=== PATIENT | female | born 1940 | race Caucasian/White ===

== ENCOUNTER 2019-09-27 11:31 | Observation (INO) ==
[2019-09-27 12:36] LABS: iSTAT Creatinine 3.5 mg/dl (0.6-1.3); iSTAT Hemoglobin 9.9 g/dl (12.0-16.0); iSTAT Ionized Calcium 1.2 mmol/l (1.12-1.32); iSTAT Potassium 5.2 mmol/L (3.3-5.0)
[2019-09-27 12:45] LABS: Appearance Urine Clear (Clear); Bacteria Urine Automated Negative (Negative); Bilirubin Urine Negative (Negative); Blood Urine 3+ (Negative); Color Urine Yellow; Epithelial Cell Urine Auto 20-30 /lpf (0-5); Glucose Urine UA Negative (Negative); Ketones Urine Negative (Negative); Leukocyte Esterase Urine Negative (Negative); Nitrite Urine Negative (Negative); Protein Urine 4+ (Negative); RBC Urine Automated >30 /hpf (0-4); Specific Gravity Urine 1.013 (1.000-1.030); Urobilinogen Urine Negative (Negative)
--- NOTE | 2019-09-27 12:46 | Emergency Department Note ---
History of Present Illness General Chief complaint: Referred by Doctor Stated complaint: KIDNEY DISEASE, REF'D BY ADRIANNA Time Seen by Provider: 09/27/19 12:11 History of Present Illness Provider complaint: Referred by physician/altered mental status Maximum Pain Intensity: 0 79-year-old female with history of CKD as well as C differential per the son at bedside presents emergency department for admission as well as altered mental status. Patient's son states the patient just moved to [facility] from [place] last week. Since moving here from [place], the son reports that the patient has had a loss of appetite, fatigue, edema of the bilateral lower extremities shortness of breath, combative behavior, and altered mental status. He states he was trying to get the patient to see a metal sprayer in the area, Dr. Fuchs, who told the patient to come to the ER to get admitted. He states Dr. Fuchs is never seen the patient. He states the patient has no PCP or physician in the area. Home Medications Home Medications Medication Instructions Recorded Confirmed Type Benefiber Sugar Free (dextrin) See Rx Instructions .ROUTE .COMPLEX 09/27/19 09/27/19 History Bifidobacterium infantis [Align] 4 mg PO BID 09/27/19 09/27/19 History apixaban [Eliquis] 2.5 mg PO BID 09/27/19 09/27/19 History bumetanide 2 mg PO Q12 09/27/19 09/27/19 History bupropion HCl 150 mg PO DAILY 09/27/19 09/27/19 History calcium carbonate [Calcium Antacid] 200 mg PO .PRN PRN 09/27/19 09/27/19 History cholecalciferol (vitamin D3) 25 mcg PO DAILY 09/27/19 09/27/19 History colesevelam 1,250 mg PO BID 09/27/19 09/27/19 History hydrocortisone 1 applic TOPICAL HS 09/27/19 09/27/19 History iron,carbonyl-vitamin C [Vitron-C] 1 tab PO DAILY 09/27/19 09/27/19 History levothyroxine 125 mcg PO DAILY 09/27/19 09/27/19 History magnesium oxide 400 mg PO BID 09/27/19 09/27/19 History metoprolol tartrate 100 mg PO BID 09/27/19 09/27/19 History ondansetron 4 mg PO Q8H PRN 09/27/19 09/27/19 History potassium chloride 10 meq PO DAILY 09/27/19 09/27/19 History rivaroxaban [Xarelto] 15 mg PO HS 09/27/19 09/27/19 History vancomycin 250 mg PO DIRECTED 09/27/19 09/27/19 History Allergies Allergy/AdvReac Type Severity Reaction Status Date / Time No Known Allergies Allergy Unverified 09/27/19 12:23 Past Med/Surg History Medical History (Updated 09/27/19 @ 19:40 by Roberto Zuñiga) C. difficile colitis CKD (chronic kidney disease) No pertinent family history Social History Feels Safe at Home: Yes Smoking Status: Never smoker Review of Systems A total of 10 systems reviewed and were otherwise negative Physical Exam Vital Signs Vital Signs - 24 hr 09/27/19 11:40 09/27/19 12:55 09/27/19 12:58 Temperature 36.8 C Temperature Source Oral Pulse Rate 84 80 92 H Pulse Rate from SpO2 Sensor 78 89 Pulse Rhythm Respiratory Rate 20 20 24 Respiratory Effort / Characteristics Non-Labored Respiratory Depth Normal Blood Pressure 144/75 H 145/91 H Blood Pressure Mean 98 114 Pulse Oximetry 99 98 99 Oxygen Delivery Method Room Air Sepsis Recent Fever Within 48 Hours No Sepsis Action Taken by Nursing No Action Required 09/27/19 13:00 09/27/19 13:01 09/27/19 13:30 Temperature Temperature Source Pulse Rate 92 H 83 79 Pulse Rate from SpO2 Sensor 90 79 71 Pulse Rhythm Irregular Respiratory Rate 22 18 20 Respiratory Effort / Characteristics Respiratory Depth Blood Pressure 144/86 H 136/67 Blood Pressure Mean 89 92 Pulse Oximetry 94 97 97 Oxygen Delivery Method Room Air Sepsis Recent Fever Within 48 Hours Sepsis Action Taken by Nursing 09/27/19 13:31 09/27/19 14:00 09/27/19 14:01 Temperature Temperature Source Pulse Rate 81 82 89 Pulse Rate from SpO2 Sensor 83 81 83 Pulse Rhythm Respiratory Rate 20 18 19 Respiratory Effort / Characteristics Respiratory Depth Blood Pressure 142/80 H Blood Pressure Mean 110 Pulse Oximetry 98 98 99 Oxygen Delivery Method Sepsis Recent Fever Within 48 Hours Sepsis Action Taken by Nursing 09/27/19 14:30 09/27/19 15:00 09/27/19 15:01 Temperature Temperature Source Pulse Rate 89 78 76 Pulse Rate from SpO2 Sensor Pulse Rhythm Respiratory Rate 21 18 27 H Respiratory Effort / Characteristics Respiratory Depth Blood Pressure 153/57 H 135/99 Blood Pressure Mean 98 121 Pulse Oximetry Oxygen Delivery Method Sepsis Recent Fever Within 48 Hours Sepsis Action Taken by Nursing 09/27/19 15:30 09/27/19 15:31 09/27/19 16:00 Temperature Temperature Source Pulse Rate 80 91 H 82 Pulse Rate from SpO2 Sensor Pulse Rhythm Respiratory Rate 20 19 20 Respiratory Effort / Characteristics Respiratory Depth Blood Pressure 157/102 H 155/76 H Blood Pressure Mean 125 101 Pulse Oximetry Oxygen Delivery Method Sepsis Recent Fever Within 48 Hours Sepsis Action Taken by Nursing 09/27/19 16:01 09/27/19 16:30 09/27/19 16:31 Temperature Temperature Source Pulse Rate 87 83 95 H Pulse Rate from SpO2 Sensor Pulse Rhythm Respiratory Rate 20 20 20 Respiratory Effort / Characteristics Respiratory Depth Blood Pressure 136/94 Blood Pressure Mean 116 Pulse Oximetry Oxygen Delivery Method Sepsis Recent Fever Within 48 Hours Sepsis Action Taken by Nursing Physical Exam GENERAL: She is oriented to person, place, and time. She appears well-developed and well-nourished. She does not appear distressed. HENT: Exam performed. -Head: Normocephalic and atraumatic. -Right Ear: External ear normal. No mastoid tenderness. -Left Ear: External ear normal. No mastoid tenderness. -Mouth/Throat: The oropharynx is clear and moist. No trismus in the jaw. No dental abscesses or uvula swelling. No oropharyngeal exudate or tonsillar abscesses. EYES: Conjunctivae and EOM are normal. Pupils are equal, round, and reactive to light. Right eye exhibits no discharge. Left eye exhibits no discharge. No scleral icterus. NECK: Normal range of motion. Neck supple. No JVD present. No spinous process tenderness present. No carotid bruit present. No rigidity. No tracheal deviation and normal range of motion present. No Brudzinski's sign and no Kernig's sign noted. CV: Normal rate, irregular rhythm, normal heart sounds and intact distal pulses. There is 4+ pitting edema of the bilateral lower extremities. Palpable radial pulses bue. PULM/CHEST: Effort normal and breath sounds normal. No respiratory distress. No stridor. She has no wheezes. She has no rales. -Chest Wall: She exhibits no tenderness. ABD: The abdomen is soft. Bowel sounds are normal. She has no distension. No mass is present. There is no tenderness. There is no rebound, no guarding, no Guerra's sign and no tenderness at McBurney's point. Rovsig negative MUSC/SKEL: Normal range of motion. There is 4+ pitting edema of the bilateral lower extremities. LYMPH: No cervical adenopathy. NEURO: She is alert and oriented to person, place, and time. She has normal strength. No cranial nerve deficit or sensory deficit. Coordination and gait normal. GCS eye subscore is 4. GCS verbal subscore is 5. GCS motor subscore is 6. Cerebellar tests wnl. SKIN: Skin is warm and dry. She is not diaphoretic. PSYCH: She has a normal mood and affect. Behavior is normal. Judgment and thought content normal. Course Course 1245: The patient was evaluated in room B5. A complete history and physical exam was performed. Cardiac monitoring: An order was placed for continuous cardiac monitoring. The monitor shows a rate of 80 with atrial fibrillation rhythm 1515: Vital signs stable. Creatinine at 3.47. Son at bedside states this is baseline for the patient. Chest x-ray shows cardiomegaly. Bedside ultrasound showed scant pericardial effusion but absolutely no evidence of pericardial tamponade. BNP elevated at 19,218. Up from yesterday of 18,080. [facility] is [facility] the patient be admitted to. Dr. Mcconnell accepted the admission Administered Medications Sodium Chloride (Nss) 500 mls @ 125 mls/hr IV .Q4H [facility] Stop: 10/27/19 12:14 Last Admin: 09/27/19 14:21 Dose: 125 mls/hr Documented by: [id number] Discontinued Medications Al Hydrox/Mg Hydrox/Simethicone () 1 dose PO ONE ONE Stop: 09/27/19 14:03 Last Admin: 09/27/19 14:21 Dose: 1 dose Documented by: [id number] Medical Decision Making Laboratory Data Result diagrams: 09/27/19 12:15 09/27/19 12:15 Lab Results 09/27/19 09/27/19 09/27/19 Range/Units 12:10 12:15 12:15 WBC 7.78 (4.8-10.8) K/uL RBC 3.47 L (4.2-5.4) M/uL Hgb 9.7 L (12.0-16.0) g/dL POC Hgb (12.0-16.0) g/dl Hct 29.2 L (37-47) % POC Hct (37-47) % MCV 84.1 (80-100) fL MCH 28.0 (25-34) pg MCHC 33.2 (32-36) g/dL RDW Std Deviation 43.3 (36.4-46.3) fL RDW Coeff of Rodriguez 14.2 (11.5-14.5) % Plt Count 471 H (130-400) K/uL MPV 8.5 (7.4-10.4) fL Immature Gran % (Auto) 0.3 % Neut % (Auto) 68.1 % Lymph % (Auto) 18.5 % [place] % (Auto) 11.1 % Eos % (Auto) 1.7 % Baso % (Auto) 0.3 % Neut # (Auto) 5.31 (1.4-6.5) K/uL Lymph # (Auto) 1.44 (1.2-3.4) K/uL [place] # (Auto) 0.86 H (0.11-0.59) K/uL Eos # (Auto) 0.13 (0-0.5) K/uL Baso # (Auto) 0.02 (0-0.2) K/uL Immature Gran # (Auto) 0.02 (0.00-0.02) K/uL PT (9.0-12.0) Seconds INR (0.9-1.1) APTT (21.0-31.0) Seconds PTT Ratio POC Sodium (135-144) mmol/L Sodium 131 L (136-145) mmol/L POC Potassium (3.3-5.0) mmol/L Potassium 5.1 (3.5-5.1) mmol/L POC Chloride (101-112) mmol/L Chloride 95 L (98-107) mmol/L Carbon Dioxide 32 (21-32) mmol/L POC Total CO2 (24-31) mmol/L Anion Gap 4.0 (3-11) POC Anion Gap (16-25) mmol/L POC BUN (7-18) mg/dl BUN 37 H (7-18) mg/dl Creatinine 3.47 H (0.6-1.2) mg/dl POC Creatinine (0.6-1.3) mg/dl Est Cr Clr Drug Dosing Not Reportable Est GFR ( Amer) 13.6 Est GFR (Non-Af Amer) 11.7 BUN/Creatinine Ratio 10.7 (10-20) Glucose 95 (70-99) mg/dl POC Glucose (70-99) mg/dl POC Glucose (other) (70-99) mg/dl Calcium 9.3 (8.5-10.1) mg/dl POC Ioniz Calcium Valeria (1.12-1.32) mmol/l Magnesium (1.8-2.4) mg/dl Total Bilirubin (0.2-1) mg/dl Direct Bilirubin (0-0.2) mg/dl AST (15-37) U/L ALT (12-78) U/L Alkaline Phosphatase (45-117) U/L Troponin I (0-0.045) ng/ml NT-Pro-B Natriuret Pep (0-1800) pg/ml Total Protein (6.4-8.2) gm/dl Albumin (3.4-5.0) gm/dl Lipase (73-393) U/L Urine Color Yellow Urine Appearance Clear (Clear) Urine pH 7.0 (4.5-7.5) Ur Specific [place] 1.013 (1.000-1.030) Urine Protein 4+ H (Negative) Urine Glucose (UA) Negative (Negative) Urine Ketones Negative (Negative) Urine Blood 3+ H (Negative) Urine Nitrite Negative (Negative) Urine Bilirubin Negative (Negative) Urine Urobilinogen Negative (Negative) Ur Leukocyte Esterase Negative (Negative) Urine WBC (Auto) 5-10 H (0-5) /hpf Urine RBC (Auto) >30 H (0-4) /hpf U Hyaline Cast (Auto) 1-5 (0-5) /lpf U Epithel Cells (Auto) 20-30 H (0-5) /lpf Urine Bacteria (Auto) Negative (Negative) 09/27/19 09/27/19 09/27/19 Range/Units 12:15 12:23 12:42 WBC (4.8-10.8) K/uL RBC (4.2-5.4) M/uL Hgb (12.0-16.0) g/dL POC Hgb 9.9 L (12.0-16.0) g/dl Hct (37-47) % POC Hct 29 L (37-47) % MCV (80-100) fL MCH (25-34) pg MCHC (32-36) g/dL RDW Std Deviation (36.4-46.3) fL RDW Coeff of Rodriguez (11.5-14.5) % Plt Count (130-400) K/uL MPV (7.4-10.4) fL Immature Gran % (Auto) % Neut % (Auto) % Lymph % (Auto) % [place] % (Auto) % Eos % (Auto) % Baso % (Auto) % Neut # (Auto) (1.4-6.5) K/uL Lymph # (Auto) (1.2-3.4) K/uL [place] # (Auto) (0.11-0.59) K/uL Eos # (Auto) (0-0.5) K/uL Baso # (Auto) (0-0.2) K/uL Immature Gran # (Auto) (0.00-0.02) K/uL PT 17.5 H (9.0-12.0) Seconds INR 1.7 H (0.9-1.1) APTT 36.2 H (21.0-31.0) Seconds PTT Ratio 1.3 POC Sodium 129 L (135-144) mmol/L Sodium (136-145) mmol/L POC Potassium 5.2 H (3.3-5.0) mmol/L Potassium (3.5-5.1) mmol/L POC Chloride 93 L (101-112) mmol/L Chloride (98-107) mmol/L Carbon Dioxide (21-32) mmol/L POC Total CO2 31 (24-31) mmol/L Anion Gap (3-11) POC Anion Gap 12.0 L (16-25) mmol/L POC BUN 32 H (7-18) mg/dl BUN (7-18) mg/dl Creatinine (0.6-1.2) mg/dl POC Creatinine 3.5 H (0.6-1.3) mg/dl Est Cr Clr Drug Dosing Est GFR ( Amer) Est GFR (Non-Af Amer) BUN/Creatinine Ratio (10-20) Glucose (70-99) mg/dl POC Glucose (70-99) mg/dl POC Glucose (other) 97 (70-99) mg/dl Calcium (8.5-10.1) mg/dl POC Ioniz Calcium Valeria 1.20 (1.12-1.32) mmol/l Magnesium 2.4 (1.8-2.4) mg/dl Total Bilirubin 0.3 (0.2-1) mg/dl Direct Bilirubin < 0.1 (0-0.2) mg/dl AST 23 (15-37) U/L ALT 17 (12-78) U/L Alkaline Phosphatase 137 H (45-117) U/L Troponin I 0.036 (0-0.045) ng/ml NT-Pro-B Natriuret Pep 51946 H (0-1800) pg/ml Total Protein 6.8 D (6.4-8.2) gm/dl Albumin 1.8 L (3.4-5.0) gm/dl Lipase 155 (73-393) U/L Urine Color Urine Appearance (Clear) Urine pH (4.5-7.5) Ur Specific [place] (1.000-1.030) Urine Protein (Negative) Urine Glucose (UA) (Negative) Urine Ketones (Negative) Urine Blood (Negative) Urine Nitrite (Negative) Urine Bilirubin (Negative) Urine Urobilinogen (Negative) Ur Leukocyte Esterase (Negative) Urine WBC (Auto) (0-5) /hpf Urine RBC (Auto) (0-4) /hpf U Hyaline Cast (Auto) (0-5) /lpf U Epithel Cells (Auto) (0-5) /lpf Urine Bacteria (Auto) (Negative) 09/27/19 Range/Units 12:57 WBC (4.8-10.8) K/uL RBC (4.2-5.4) M/uL Hgb (12.0-16.0) g/dL POC Hgb (12.0-16.0) g/dl Hct (37-47) % POC Hct (37-47) % MCV (80-100) fL MCH (25-34) pg MCHC (32-36) g/dL RDW Std Deviation (36.4-46.3) fL RDW Coeff of Rodriguez (11.5-14.5) % Plt Count (130-400) K/uL MPV (7.4-10.4) fL Immature Gran % (Auto) % Neut % (Auto) % Lymph % (Auto) % [place] % (Auto) % Eos % (Auto) % Baso % (Auto) % Neut # (Auto) (1.4-6.5) K/uL Lymph # (Auto) (1.2-3.4) K/uL [place] # (Auto) (0.11-0.59) K/uL Eos # (Auto) (0-0.5) K/uL Baso # (Auto) (0-0.2) K/uL Immature Gran # (Auto) (0.00-0.02) K/uL PT (9.0-12.0) Seconds INR (0.9-1.1) APTT (21.0-31.0) Seconds PTT Ratio POC Sodium (135-144) mmol/L Sodium (136-145) mmol/L POC Potassium (3.3-5.0) mmol/L Potassium (3.5-5.1) mmol/L POC Chloride (101-112) mmol/L Chloride (98-107) mmol/L Carbon Dioxide (21-32) mmol/L POC Total CO2 (24-31) mmol/L Anion Gap (3-11) POC Anion Gap (16-25) mmol/L POC BUN (7-18) mg/dl BUN (7-18) mg/dl Creatinine (0.6-1.2) mg/dl POC Creatinine (0.6-1.3) mg/dl Est Cr Clr Drug Dosing Est GFR ( Amer) Est GFR (Non-Af Amer) BUN/Creatinine Ratio (10-20) Glucose (70-99) mg/dl POC Glucose 101 H (70-99) mg/dl POC Glucose (other) (70-99) mg/dl Calcium (8.5-10.1) mg/dl POC Ioniz Calcium Valeria (1.12-1.32) mmol/l Magnesium (1.8-2.4) mg/dl Total Bilirubin (0.2-1) mg/dl Direct Bilirubin (0-0.2) mg/dl AST (15-37) U/L ALT (12-78) U/L Alkaline Phosphatase (45-117) U/L Troponin I (0-0.045) ng/ml NT-Pro-B Natriuret Pep (0-1800) pg/ml Total Protein (6.4-8.2) gm/dl Albumin (3.4-5.0) gm/dl Lipase (73-393) U/L Urine Color Urine Appearance (Clear) Urine pH (4.5-7.5) Ur Specific [place] (1.000-1.030) Urine Protein (Negative) Urine Glucose (UA) (Negative) Urine Ketones (Negative) Urine Blood (Negative) Urine Nitrite (Negative) Urine Bilirubin (Negative) Urine Urobilinogen (Negative) Ur Leukocyte Esterase (Negative) Urine WBC (Auto) (0-5) /hpf Urine RBC (Auto) (0-4) /hpf U Hyaline Cast (Auto) (0-5) /lpf U Epithel Cells (Auto) (0-5) /lpf Urine Bacteria (Auto) (Negative) Imaging Data Radiologist's Impression: XR chest 1V portable CLINICAL HISTORY: Acute change in mental status COMPARISON STUDY: No previous studies for comparison. FINDINGS: The heart is enlarged. There is a large retrocardiac opacity consistent with a hiatal hernia. Mild pulmonary venous hypertension is suspected. There is no lobar consolidation. There are advanced arthritic changes within each shoulder. There are no significant pleural effusions[ IMPRESSION: 1. Cardiomegaly and suspected mild pulmonary venous hypertension 2. Large hiatal hernia 2. No evidence of focal pulmonary consolidation ACT 112: Negative or not required by law. Electronically signed by: Orville Suarez M.D. 09/27/2019 12:54 PM Dictated: 09/27/19 1253 Transcribed: 09/27/[address] head/brain wo con CT DOSE: 638.56 mGycm HISTORY: Mental status change ams TECHNIQUE: Multiaxial CT images of the head were performed without the use of intravenous contrast. A dose lowering technique was utilized adhering to the principles of ALARA. Comparison: None. Findings: The paranasal sinuses and mastoid air cells are clear. The calvarium and skull base are intact. The ventricles and sulci are within normal limits. There is no mass, hematoma, midline shift, or acute infarct. Impression: No acute intracranial abnormality. ACT 112: Negative or not required by law. The above report was generated using voice recognition software. It may contain grammatical, syntax or spelling errors. Electronically signed by: Davi Patterson M.D. 09/27/2019 1:54 PM Dictated: 09/27/19 1348 Transcribed: 09/27/[address] WITHOUT CONTRAST CT DOSE: 819.35 mGycm HISTORY: Acute generalized abdominal pain with altered mental status ams abd pain TECHNIQUE: Multiaxial CT images of the abdomen and pelvis were performed without contrast. A dose lowering technique was utilized adhering to the principles of ALARA. COMPARISON STUDY: Chest radiograph of same day FINDINGS: Mild subsegmental bibasilar atelectasis. No pneumatosis or pneumoperitoneum. Moderate cardiomegaly. Spleen, and pancreas are unremarkable. Thickening of the adrenal glands suggests adrenal hyperplasia. Cholecystectomy. There is mild marginal nodularity of the liver suggests a mild cirrhotic liver disease without site is. No hepatic mass lesion or biliary ductal dilation. Liver is mildly enlarged. There are a few hypodensities of the left kidney suggestive of probable cysts measuring up to 2.0 cm. 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 No hydronephrosis. Pelvic structures are partially obscured secondary to streak artifact from bilateral hip total joint arthroplasties. Visualized urinary bladder is unremarkable. Indeterminate 2.5 x 1.9 cm cystic structure of the left adnexal/left iliac distribution. The uterus may be surgically absent. Extensive calcified plaque of the abdominal aorta without aneurysm. No adenopathy. Large hiatal hernia with majority of the stomach present within the thoracic cavity, partially imaged. Equivocal gastric wall thickening. No bowel obstruction or bowel wall thickening. Extensive colonic diverticulosis. No CT evidence of acute diverticulitis. Moderate fecal retention. There are a few right hemicolon scattered air-fluid levels. Noninflamed appendix. Tiny fat filled periumbilical hernia. Mild generalized body wall edema. Lumbar levoscoliosis. Demineralized appearance of the bones. Degenerative changes of the spine and pelvis. IMPRESSION: 1. Large hiatal hernia with the majority of the stomach present within the thoracic cavity, partially imaged. 2. No bowel obstruction or bowel wall thickening. 3. Extensive colonic diverticulosis without acute diverticulitis. 4. Findings suggestive of cirrhotic liver disease. No ascites. 5. Additional findings as above. Lumbar levoscoliosis. ACT 112: Negative or not required by law. The above report was generated using voice recognition software. It may contain grammatical, syntax or spelling errors. Electronically signed by: Eliezer Azveedo M.D. 09/27/2019 1:54 PM Dictated: 09/27/19 1347 Transcribed: 09/27/19 1347 ECG Data Indication: + altered mental status and + weakness Rate (beats per minute): 74 Rhythm: + atrial fibrillation ECG Intervals/blocks: + Normal QRS and + Normal QT-c ECG ST segments: + Normal ST segments [facility] Narrative 1245: The patient was evaluated in room B5. A complete history and physical exam was performed. Cardiac monitoring: An order was placed for continuous cardiac monitoring. The monitor shows a rate of 80 with atrial fibrillation rhythm 1515: Vital signs stable. Creatinine at 3.47. Son at bedside states this is baseline for the patient. Chest x-ray shows cardiomegaly. Bedside ultrasound showed scant pericardial effusion but absolutely no evidence of pericardial tamponade. BNP elevated at 19,218. Up from yesterday of 18,080. [facility] family is requesting the patient be admitted to. Dr. Mcconnell accepted the admission Impression & Plan Acute exacerbation of CHF (congestive heart failure) Discharge Plan Visit Data *Final* Discharge Date/Time: 09/27/19 17:55 Chief Complaint: Referred by Doctor Stated Complaint: KIDNEY DISEASE, REF'D BY ADRIANNA ED Provider: Roberto Zuñiga Discharge Problem: Acute exacerbation of CHF (congestive heart failure) Patient Disposition: Admitted As Inpatient Discharge Instructions Interventions: ED Discharge Assessment Last Done: 09/27/19 17:55 Discharge Problem: Acute exacerbation of CHF (congestive heart failure) Qualifiers: Heart failure type: unspecified Qualified Code(s): I50.9 - Heart failure, unspecified
[2019-09-27 12:52] LABS: Basophils # (auto) 0.02 K/uL (0-0.2); Basophils % (auto) 0.3 %; Eosinophils # (auto) 0.13 K/uL (0-0.5); Eosinophils % (auto) 1.7 %; Hematocrit (blood only) 29.2 % (37-47); Hemoglobin 9.7 g/dL (12.0-16.0); Immature Granulocytes # (auto) 0.02 K/uL (0.00-0.02); Immature Granulocytes % (auto) 0.3 %; Lymphocytes # (auto) 1.44 K/uL (1.2-3.4); Lymphocytes % (auto) 18.5 %; Mean Corpuscular Hgb Conc 33.2 g/dL (32-36); Mean Corpuscular Volume 84.1 fL (80-100); Mean Platelet Volume 8.5 fL (7.4-10.4); Monocytes # (auto) 0.86 K/uL (0.11-0.59); Monocytes % (auto) 11.1 %; Neutrophils # (auto) 5.31 K/uL (1.4-6.5); Neutrophils % (auto) 68.1 %; Platelet Count 471 K/uL (130-400); RDW Coefficient of Variation 14.2 % (11.5-14.5); RDW Standard Deviation 43.3 fL (36.4-46.3); Red Blood Count 3.47 M/uL (4.2-5.4); White Blood Count 7.78 K/uL (4.8-10.8)
--- NOTE | 2019-09-27 12:55 | XRay Report ---
XR chest 1V portable CLINICAL HISTORY: Acute change in mental status COMPARISON STUDY: No previous studies for comparison. FINDINGS: The heart is enlarged. There is a large retrocardiac opacity consistent with a hiatal herni a. Mild pulmonary venous hypertension is suspected. There is no lobar consolidation. There are advanc ed arthritic changes within each shoulder. There are no significant pleural effusions[ IMPRESSION: 1. Cardiomegaly and suspected mild pulmonary venous hypertension 2. Large hiatal hernia 2. No evidence of focal pulmonary consolidation ACT 112: Negative or not required by law. Electronically signed by: Orville Suarez M.D. 09/27/2019 12:54 PM
[2019-09-27 13:12] LABS: BUN Creatinine Ratio 10.7 (10-20); Blood Urea Nitrogen 37 mg/dl (7-18); Calcium 9.3 mg/dl (8.5-10.1); Carbon Dioxide 32 mmol/L (21-32); Chloride 95 mmol/L (98-107); Est GFR (African American) 13.6; Est GFR (Non-African American) 11.7; Glucose 95 mg/dl (70-99); Potassium 5.1 mmol/L (3.5-5.1); Sodium 131 mmol/L (136-145)
--- NOTE | 2019-09-27 13:55 | CT Scan Report ---
ABDOMEN AND PELVIS CT WITHOUT CONTRAST CT DOSE: 819.35 mGycm HISTORY: Acute generalized abdominal pain with altered mental status ams abd pain TECHNIQUE: Multiaxial CT images of the abdomen and pelvis were performed without contrast. A dose lo wering technique was utilized adhering to the principles of ALARA. COMPARISON STUDY: Chest radiograph of same day FINDINGS: Mild subsegmental bibasilar atelectasis. No pneumatosis or pneumoperitoneum. Moderate cardiomegaly. S pleen, and pancreas are unremarkable. Thickening of the adrenal glands suggests adrenal hyperplasia. Cholecystectomy. There is mild marginal nodularity of the liver suggests a mild cirrhotic liver disea se without site is. No hepatic mass lesion or biliary ductal dilation. Liver is mildly enlarged. There are a few hypodensities of the left kidney suggestive of probable cysts measuring up to 2.0 cm. 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 No hydronephrosis. Pelvic structures a re partially obscured secondary to streak artifact from bilateral hip total joint arthroplasties. Vis ualized urinary bladder is unremarkable. Indeterminate 2.5 x 1.9 cm cystic structure of the left adne xal/left iliac distribution. The uterus may be surgically absent. Extensive calcified plaque of the a bdominal aorta without aneurysm. No adenopathy. Large hiatal hernia with majority of the stomach present within the thoracic cavity, partially imaged . Equivocal gastric wall thickening. No bowel obstruction or bowel wall thickening. Extensive colonic diverticulosis. No CT evidence of acute diverticulitis. Moderate fecal retention. There are a few ri ght hemicolon scattered air-fluid levels. Noninflamed appendix. Tiny fat filled periumbilical hernia. Mild generalized body wall edema. Lumbar levoscoliosis. Demineralized appearance of the bones. Degen erative changes of the spine and pelvis. IMPRESSION: 1. Large hiatal hernia with the majority of the stomach present within the thoracic cavity, partially imaged. 2. No bowel obstruction or bowel wall thickening. 3. Extensive colonic diverticulosis without acute diverticulitis. 4. Findings suggestive of cirrhotic liver disease. No ascites. 5. Additional findings as above. Lumbar levoscoliosis. ACT 112: Negative or not required by law. The above report was generated using voice recognition software. It may contain grammatical, syntax o r spelling errors. Electronically signed by: Eliezer Azevedo M.D. 09/27/2019 1:54 PM
--- NOTE | 2019-09-27 13:55 | CT Scan Report ---
CT head/brain wo con CT DOSE: 638.56 mGycm HISTORY: Mental status change ams TECHNIQUE: Multiaxial CT images of the head were performed without the use of intravenous contrast. A dose lowering technique was utilized adhering to the principles of ALARA. Comparison: None. Findings: The paranasal sinuses and mastoid air cells are clear. The calvarium and skull base are int act. The ventricles and sulci are within normal limits. There is no mass, hematoma, midline shift, or acute infarct. Impression: No acute intracranial abnormality. ACT 112: Negative or not required by law. The above report was generated using voice recognition software. It may contain grammatical, syntax or spelling errors. Electronically signed by: Davi Patterson M.D. 09/27/2019 1:54 PM
[2019-09-27] MEDS ORDERED: GI COCKTAIL ED USE PO ONE (14:02)
[2019-09-27] MEDS: SODIUM CHLORIDE 0.9% 500 ML IV SCH ×2 (14:21→20:45)
[2019-09-27 14:38] LABS: INR 1.7 (0.9-1.1); Partial Thromboplastin Ratio 1.3; Partial Thromboplastin Time 36.2 Seconds (21.0-31.0); Prothrombin Time 17.5 Seconds (9.0-12.0)
[2019-09-27 15:30] LABS: Alanine Aminotransferase 17 U/L (12-78); Albumin Level 1.8 gm/dl (3.4-5.0); Alkaline Phosphatase 137 U/L (45-117); Aspartate Aminotransferase 23 U/L (15-37); Bilirubin Direct < 0.1 mg/dl (0-0.2); Bilirubin,Total 0.3 mg/dl (0.2-1); Lipase 155 U/L (73-393); Magnesium 2.4 mg/dl (1.8-2.4); NT Pro B Type Natriuretic Pept 19218 pg/ml (0-1800); Total Protein 6.8 gm/dl (6.4-8.2); Troponin I 0.036 ng/ml (0-0.045)
--- NOTE | 2019-09-27 16:26 | History & Physical Report ---
Date of Service September 27, 2019 Assessment & Plan (1) Acute kidney injury: Serum creatinine 3.47 compared to 1.18 on 01/16/19. UA shows 4+ protein. No hydronephrosis on CT. Hold bumetanide. Check SPEP, UPEP. Consult Nephrology. (2) Chronic diastolic heart failure: History of chronic left ventricular diastolic heart failure. No overt CHF radiographically. Hold bumetanide due to worsening renal function. (3) Atrial fibrillation: Rate controlled on metoprolol. Continue anticoagulation with apixaban. (4) Hypertension: Continue metoprolol. Follow and titrate Rx. (5) Cerebrovascular disease: S/P ischemic stroke, apparently cardioembolic due to AF. Minimal residual deficit. Continue apixaban. 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 Currently on vancomycin taper, but still having frequent loose stools. Consult GI. (7) Cirrhosis of liver: Mild cirrhosis of liver noted on CT. No apparent prior history. Current weight 74 kg, but pt reports 34 kg weight loss after her . May have CAM. Consult GI. (8) Hypothyroidism: TSH = 4.690. Continue levothyroxine. (9) Anemia: Hgb 9.7. 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 Check Fe studies, B12, folate, SPEP, UPEP. Further management per Nephrology. (10) Adnexal mass: Incidental finding on CT: "Indeterminate 2.5 x 1.9 cm cystic structure of the left adnexal/left iliac distribution." Check old records. Follow as clinically indicated. (11) Frequent falls: Pt reports frequent falls, last episode about 1 month ago. 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 Also s/p stroke with minimal residual right-sided weakness. PT / OT evals. (12) DVT prophylaxis: Continue apixaban. Ambulate. (13) Do not resuscitate status: Per discussion with patient and her son. (14) Discharge planning issues: Anticipated return to [facility]. Nephrology follow-up with Dr. Zimmerman. History of Present Illness Chief Complaint: abnormal labs, fluid retention, diarrhea Primary Care Provider: [facility] 79 YO female, just moved from [place], [place] to [facility] in [place] last week. Family lives in town. History of diastolic CHF, AF, mitral regurgitation, cerebrovascular disease, CKD, recurrent C diff, and other problems as noted. She is in the process of establishing with Dr. Zimmerman for management of her renal disease. Noted to have rising creatinine on labs drawn yesterday (BUN 37, creatinine 3.57). Serum creatinine was 1.18 on 01/16/19. Referred to hospital for further evaluation and management. Per history obtained from patient and son, sounds like she has had significant proteinuria. Urine output good with bumetanide. Has chronic / worsening dependent edema. No dysuria or gross hematuria. Also having problems with recurrent C difficile; has had 3 episodes. Started on vancomycin taper about 1 week ago, but having persistent diarrhea. No fever, abdominal pain, hematochezia. Allergies Allergy/AdvReac Type Severity Reaction Status Date / Time No Known Allergies Allergy Unverified 09/27/19 12:23 Home Medications Home Medications Medication Instructions Recorded Confirmed Type Benefiber Sugar Free (dextrin) See Rx Instructions .ROUTE .COMPLEX 09/27/19 09/27/19 History Bifidobacterium infantis [Align] 4 mg PO BID 09/27/19 09/27/19 History apixaban [Eliquis] 2.5 mg PO BID 09/27/19 09/27/19 History bumetanide 2 mg PO Q12 09/27/19 09/27/19 History bupropion HCl 150 mg PO DAILY 09/27/19 09/27/19 History calcium carbonate [Calcium Antacid] 200 mg PO .PRN PRN 09/27/19 09/27/19 History cholecalciferol (vitamin D3) 25 mcg PO DAILY 09/27/19 09/27/19 History colesevelam 1,250 mg PO BID 09/27/19 09/27/19 History hydrocortisone 1 applic TOPICAL HS 09/27/19 09/27/19 History iron,carbonyl-vitamin C [Vitron-C] 1 tab PO DAILY 09/27/19 09/27/19 History levothyroxine 125 mcg PO DAILY 09/27/19 09/27/19 History magnesium oxide 400 mg PO BID 09/27/19 09/27/19 History metoprolol tartrate 100 mg PO BID 09/27/19 09/27/19 History ondansetron 4 mg PO Q8H PRN 09/27/19 09/27/19 History potassium chloride 10 meq PO DAILY 09/27/19 09/27/19 History vancomycin 250 mg PO DIRECTED 09/27/19 09/27/19 History Past Med/Surg History Medical History (Updated 09/27/19 @ 23:58 by Josr Mcconnell MD) Acoustic neuroma s/p gamma knife Adnexal mass Anemia Atrial fibrillation C. difficile colitis Cerebrovascular disease Chronic diastolic heart failure Cirrhosis of liver CKD (chronic kidney disease) Diverticulosis Frequent falls Hiatal hernia History of Helicobacter pylori infection Hypertension Hypothyroidism Mitral regurgitation Thyroid adenoma Surgical History (Updated 09/27/19 @ 23:32 by Josr Mcconnell MD) Status post cholecystectomy Status post hernia repair Status post hysterectomy Status post left hip replacement Status post total hip replacement, right Status post total knee replacement, left Status post total knee replacement, right Family History (Updated 09/27/19 @ 23:34 by Josr Mcconnell MD) Mother Heart disease Hypertension Stroke Father Pneumoconiosis Social History Preferred Language: German Communication Ability: Effective Head Of Biology Required: No Beliefs That Will Affect Care: None Current Living Situation: Personal Care Facility Current Living Situation Comment: [facility] Feels Safe at Home: Yes Smoking Status: Never smoker Hx Alcohol Use: No Hx Substance Use: No Review of Systems Constitutional: + weight loss (75 lbs a few years ago after passsing of her ); no fever Eyes: + worsening vision (no acute changes) Ear, Nose, Mouth, Throat: + hearing loss (left, due to acoustic neuroma) Respiratory: + dyspnea on exertion; no cough Cardiovascular: + edema; no chest pain and no palpitations Gastrointestinal: + nausea and + diarrhea/loose stools; no vomiting, no constipation, no blood in stools and no melena Genitourinary: no dysuria and no hematuria UTI 1-2 months ago, treated Musculoskeletal: no joint pain (shoulders) Integumentary: no rash and no new lesions Neurologic: poor balance, occasional falls problems with short-term memory Psychiatric: adjusting to move Endocrine: no polydipsia and no polyuria Hematologic / Lymphatic: + easy bleeding and + easy bruising; no lymphadenopathy Physical Exam Constitutional: WD/WN, vitals as above no acute distress Eyes: PERRL, conjunctivae normal, anicteric sclerae ENMT: external ear and nose normal, oropharynx normal Ears: + hearing impairment (left ear) Neck: trachea midline, no thyromegaly Respiratory: normal respiratory effort, lungs clear to auscultation Cardiovascular: Rate/Rhythm: + irregularly irregular Heart Sounds: + murmur (II/ sys murmur LSB); no gallop and no cardiac rub Vessels: + JVD; + abnormal peripheral pulses (pedal pulses diminished) Extremities: normal capillary refill and + edema (2+); no calf tenderness Gastrointestinal (Abdomen): normal bowel sounds, soft, nontender, no hepatosplenomegaly Musculoskeletal: Head/Neck/Chest: neck supple Extremities: strength 5/5 throughout; no cyanosis and no clubbing Skin: no rashes, warm and dry Neurologic: PERRL, EOMI no facial palsy no dysarthria or aphasia patellar DTR's 1/2 bilat plantar reflexes downgoing Psychiatric: Orientation: alert and oriented x 3 (oriented to person, hospital, month, year, president) Affect: euthymic affect Lymphatic: no cervical lymphadenopathy Results & Data Results & Data ([facility]) Vital Signs (Past 12 Hours) Vital Signs Temp Pulse Resp BP Pulse Ox 09/27/19 15:01 76 27 H 09/27/19 15:00 78 18 135/99 09/27/19 14:30 89 21 153/57 H 09/27/19 14:01 89 19 99 09/27/19 14:00 82 18 142/80 H 98 09/27/19 13:31 81 20 98 09/27/19 13:30 79 20 136/67 97 09/27/19 13:01 83 18 97 09/27/19 13:00 92 H 22 144/86 H 94 09/27/19 12:58 92 H 24 99 09/27/19 12:55 80 20 145/91 H 98 09/27/19 11:40 36.8 C 84 20 144/75 H 99 Laboratory Results Laboratory Results - last 24 hr 09/27/19 09/27/19 09/27/19 12:10 12:15 12:15 WBC 7.78 RBC 3.47 L Hgb 9.7 L POC Hgb Hct 29.2 L POC Hct MCV 84.1 MCH 28.0 MCHC 33.2 RDW Std Deviation 43.3 RDW Coeff of Rodriguez 14.2 Plt Count 471 H MPV 8.5 Immature Gran % (Auto) 0.3 Neut % (Auto) 68.1 Lymph % (Auto) 18.5 [place] % (Auto) 11.1 Eos % (Auto) 1.7 Baso % (Auto) 0.3 Neut # (Auto) 5.31 Lymph # (Auto) 1.44 [place] # (Auto) 0.86 H Eos # (Auto) 0.13 Baso # (Auto) 0.02 Immature Gran # (Auto) 0.02 PT INR APTT PTT Ratio POC Sodium Sodium 131 L POC Potassium Potassium 5.1 POC Chloride Chloride 95 L Carbon Dioxide 32 POC Total CO2 Anion Gap 4.0 POC Anion Gap POC BUN BUN 37 H Creatinine 3.47 H POC Creatinine Est Cr Clr Drug Dosing Not Reportable Est GFR ( Amer) 13.6 Est GFR (Non-Af Amer) 11.7 BUN/Creatinine Ratio 10.7 Glucose 95 POC Glucose POC Glucose (other) Calcium 9.3 POC Ioniz Calcium Valeria Magnesium Total Bilirubin Direct Bilirubin AST ALT Alkaline Phosphatase Troponin I NT-Pro-B Natriuret Pep Total Protein Albumin Lipase Urine Color Yellow Urine Appearance Clear Urine pH 7.0 Ur Specific [place] 1.013 Urine Protein 4+ H Urine Glucose (UA) Negative Urine Ketones Negative Urine Blood 3+ H Urine Nitrite Negative Urine Bilirubin Negative Urine Urobilinogen Negative Ur Leukocyte Esterase Negative Urine WBC (Auto) 5-10 H Urine RBC (Auto) >30 H U Hyaline Cast (Auto) 1-5 U Epithel Cells (Auto) 20-30 H Urine Bacteria (Auto) Negative 09/27/19 09/27/19 09/27/19 12:15 12:23 12:42 WBC RBC Hgb POC Hgb 9.9 L Hct POC Hct 29 L MCV MCH MCHC RDW Std Deviation RDW Coeff of Rodriguez Plt Count MPV Immature Gran % (Auto) Neut % (Auto) Lymph % (Auto) [place] % (Auto) Eos % (Auto) Baso % (Auto) Neut # (Auto) Lymph # (Auto) [place] # (Auto) Eos # (Auto) Baso # (Auto) Immature Gran # (Auto) PT 17.5 H INR 1.7 H APTT 36.2 H PTT Ratio 1.3 POC Sodium 129 L Sodium POC Potassium 5.2 H Potassium POC Chloride 93 L Chloride Carbon Dioxide POC Total CO2 31 Anion Gap POC Anion Gap 12.0 L POC BUN 32 H BUN Creatinine POC Creatinine 3.5 H Est Cr Clr Drug Dosing Est GFR ( Amer) Est GFR (Non-Af Amer) BUN/Creatinine Ratio Glucose POC Glucose POC Glucose (other) 97 Calcium POC Ioniz Calcium Valeria 1.20 Magnesium 2.4 Total Bilirubin 0.3 Direct Bilirubin < 0.1 AST 23 ALT 17 Alkaline Phosphatase 137 H Troponin I 0.036 NT-Pro-B Natriuret Pep 16859 H Total Protein 6.8 D Albumin 1.8 L Lipase 155 Urine Color Urine Appearance Urine pH Ur Specific [place] Urine Protein Urine Glucose (UA) Urine Ketones Urine Blood Urine Nitrite Urine Bilirubin Urine Urobilinogen Ur Leukocyte Esterase Urine WBC (Auto) Urine RBC (Auto) U Hyaline Cast (Auto) U Epithel Cells (Auto) Urine Bacteria (Auto) 09/27/19 12:57 WBC RBC Hgb POC Hgb Hct POC Hct MCV MCH MCHC RDW Std Deviation RDW Coeff of Rodriguez Plt Count MPV Immature Gran % (Auto) Neut % (Auto) Lymph % (Auto) [place] % (Auto) Eos % (Auto) Baso % (Auto) Neut # (Auto) Lymph # (Auto) [place] # (Auto) Eos # (Auto) Baso # (Auto) Immature Gran # (Auto) PT INR APTT PTT Ratio POC Sodium Sodium POC Potassium Potassium POC Chloride Chloride Carbon Dioxide POC Total CO2 Anion Gap POC Anion Gap POC BUN BUN Creatinine POC Creatinine Est Cr Clr Drug Dosing Est GFR ( Amer) Est GFR (Non-Af Amer) BUN/Creatinine Ratio Glucose POC Glucose 101 H POC Glucose (other) Calcium POC Ioniz Calcium Valeria Magnesium Total Bilirubin Direct Bilirubin AST ALT Alkaline Phosphatase Troponin I NT-Pro-B Natriuret Pep Total Protein Albumin Lipase Urine Color Urine Appearance Urine pH Ur Specific [place] Urine Protein Urine Glucose (UA) Urine Ketones Urine Blood Urine Nitrite Urine Bilirubin Urine Urobilinogen Ur Leukocyte Esterase Urine WBC (Auto) Urine RBC (Auto) U Hyaline Cast (Auto) U Epithel Cells (Auto) Urine Bacteria (Auto) Diagnostic Findings PORTABLE CHEST X-RAY Reviewed by the undersigned and formally interpreted by Radiology: FINDINGS: The heart is enlarged. There is a large retrocardiac opacity consistent with a hiatal hernia. Mild pulmonary venous hypertension is suspected. There is no lobar consolidation. There are advanced arthritic changes within each shoulder. There are no significant pleural effusions[ IMPRESSION: 1. Cardiomegaly and suspected mild pulmonary venous hypertension 2. Large hiatal hernia 2. No evidence of focal pulmonary consolidation ACT 112: Negative or not required by law. Electronically signed by: Orville Suarez M.D. 09/27/2019 12:[address] HEAD No acute findings. CT ABDOMEN & PELVIS FINDINGS: Mild subsegmental bibasilar atelectasis. No pneumatosis or pneumoperitoneum. Moderate cardiomegaly. Spleen, and pancreas are unremarkable. Thickening of the adrenal glands suggests adrenal hyperplasia. Cholecystectomy. There is mild marginal nodularity of the liver suggests a mild cirrhotic liver disease without site is. No hepatic mass lesion or biliary ductal dilation. Liver is mildly enlarged. There are a few hypodensities of the left kidney suggestive of probable cysts measuring up to 2.0 cm. 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 No hydronephrosis. Pelvic structures are partially obscured secondary to streak artifact from bilateral hip total joint arthroplasties. Visualized urinary bladder is unremarkable. Indeterminate 2.5 x 1.9 cm cystic structure of the left adnexal/left iliac distribution. The uterus may be surgically absent. Extensive calcified plaque of the abdominal aorta without aneurysm. No adenopat hy. Large hiatal hernia with majority of the stomach present within the thoracic cavity, partially imaged. Equivocal gastric wall thickening. No bowel obstruction or bowel wall thickening. Extensive colonic diverticulosis. No CT evidence of acute diverticulitis. Moderate fecal retention. There are a few right hemicolon scattered air-fluid levels. Noninflamed appendix. Tiny fat filled periumbilical hernia. Mild generalized body wall edema. Lumbar levoscoliosis. Demineralized appearance of the bones. Degenerative changes of the spine and pelvis. IMPRESSION: 1. Large hiatal hernia with the majority of the stomach present within the thoracic cavity, partially imaged. 2. No bowel obstruction or bowel wall thickening. 3. Extensive colonic diverticulosis without acute diverticulitis. 4. Findings suggestive of cirrhotic liver disease. No ascites. 5. Additional findings as above. Lumbar levoscoliosis. ACT 112: Negative or not required by law. The above report was generated using voice recognition software. It may contain grammatical, syntax or spelling errors. Electronically signed by: Eliezer Azevedo M.D. 09/27/2019 1:54 PM ECG Additional Comments: EKG performed at 1301 reviewed and demonstrated AF at 74 / min, incomplete RBBB, no acute changes. Code Status & VTE Plan Code Status Advance directives discussed with patient and her son. She has a living will and POLST. She prefers a natural passing and does not wish to have extraordinary measures undertaken at end of life. Code status is DNR. VTE Prophylaxis Plan VTE Prophylaxis will be ordered: Yes
[2019-09-27] MEDS ORDERED: ONDANSETRON 4 MG OD TAB PO PRN (19:23)
[2019-09-27] MEDS: VANCOMYCIN HCL 125 MG/2.5ML SOLN PO SCH ×2 (20:07→23:00)
[2019-09-27] MEDS: LACTOBACILLUS ACIDOPHILUS (FLORANEX) TAB PO SCH (20:07)
[2019-09-27] MEDS: RASPBERRY SYRUP 5 ML UDP PO SCH ×2 (20:07→23:00)
[2019-09-27] MEDS: HYDROCORTISONE 2.5% CR 30 GM TUBE EXT SCH (20:08)
[2019-09-27] MEDS: APIXABAN 2.5 MG TAB PO SCH (20:08)
[2019-09-27] MEDS: METOPROLOL TARTRATE 100 MG TAB PO SCH (20:08)
[2019-09-27] MEDS: CALCIUM CARBONATE 500 MG CHEWABLE TAB PO PRN (20:44)
[2019-09-27] MEDS ORDERED: MAGNESIUM OXIDE 400 MG TAB PO SCH (21:00)
[2019-09-27] MEDS ORDERED: Nursing to Pharmacy Communication SCH (21:15)
[2019-09-28] MEDS: SODIUM CHLORIDE 0.9% 500 ML IV SCH (00:42)
[2019-09-28] MEDS: CALCIUM CARBONATE 500 MG CHEWABLE TAB PO PRN ×3 (03:01→08:15)
[2019-09-28] MEDS: RASPBERRY SYRUP 5 ML UDP PO SCH ×4 (05:10→23:01)
[2019-09-28] MEDS: LEVOTHYROXINE SODIUM 125 MCG TABLET PO SCH (05:10)
[2019-09-28] MEDS: VANCOMYCIN HCL 125 MG/2.5ML SOLN PO SCH ×4 (05:10→23:01)
--- NOTE | 2019-09-28 06:10 | Electrocardiogram Report ---
Test Reason : Blood Pressure : / mmHG Vent. Rate : 074 BPM Atrial Rate : 070 BPM P-R Int : 000 ms QRS Dur : 098 ms QT Int : 398 ms P-R-T Axes : 000 -60 023 degrees QTc Int : 441 ms Atrial fibrillation Incomplete right bundle branch block Left anterior fascicular block Abnormal ECG No previous ECGs available Confirmed by Carlito Perry ([id number]) on 09/28/2019 6:09:53 AM Referred By: Confirmed By:Carlito Perry
--- NOTE | 2019-09-28 08:07 | Gastrointestinal Consultation ---
Date of Consultation September 28, 2019 Assessment & Plan (1) Chronic diarrhea: This is an 79 y/o female admitted with EZEQUIEL, with PMHx chronic intermittent diarrhea x 2 years, worsened since December 2018, with reported 2 + C. diff PCR through providers in [place], [place], though no C diff toxin checked. She was put on a vanco taper on which she remains, though no repeat C. diff testing was done. Pt and son don't recall previous tx for + c. diff. CT showed moderate fecal retention, no obstruction. She's afebrile, normal WBC. Unclear if she actually has C. diff or is a carrier; other dx include other infectious causes or perhaps overflow vs medications vs IBS. Her colonoscopy was unremarkable in December 2018 per son, making IBD, microscopic colitis, or occult malignancy less likely. - Check GI path panel/stool culture - Check C. diff toxin - Can continue vanco taper for now - If infectious causes ruled out, consider bowel regimen to help with stool burden which may help episodes of loose stools - Will review previous records in [facility] Thank you for allowing us to participate in the care of this patient. Please call with any acute changes, questions or concerns. Please see addendum below with additional recommendation from my supervising physician. (2) Abnormal CT of the abdomen: CT marginal nodular mildly enlarged liver. MELD today is 27, largely driven by elevated creatinine/EZEQUIEL. Given lack of low plts and lack of splenomegaly or risk factors for liver disease, and lack of varcies on recent EGD (per son), it's not clear whether she truly has underlying liver disease - Will review previous records in chart - Pt may benefit from outpt GI work-up (US ABD, Fibroscan), serologies, etc - Re: EZEQUIEL, will defer to primary/nephrology services for management - She has no obvious complications of liver disease including GIB, encep halopathy, ascites which would require tx Supervising Physician Co-Signing Physician Notes Agree with assessment and plan as per Lucia's assessment and plan. History of Present Illness Reason for Consultation: (1) recurrent C diff (2) cirrhosis Attending Physician: Cj Longo MD History of Present Illness This is an 79 y/o female who just recently moved here last week from [place], [place], with PMHx CHF, A-fib on Eliquis, CVA, CKD, admitted for worsening renal fxn (Cr 3.57 incr'd from baseline 1.1). GI consulted for h/o recurrent c diff. She is interviewed with her son who helps with history; pt exhibiting some memory problems. He states for the last 2 years she's had intermittent bouts of diarrhea, that worsened since December of last year. Stools alternate between semi-formed (1-2 x per day) or loose brown (up to 6 per day); denies episodes of constipation. She was seen by GI in [place] and he reports she was first dx'd with C. diff in July (son notes PCR checked, not toxin) and tx with 10 days of therapy (pt unsure of the name), and she noted no improvement in her symptoms. She was retested again after that and again was PCR + (toxin not done); was tx with another 10 days of therapy with no improvement. She was then rx'd a prolonged vanco taper starting in late August which she continues, and again has had no improvement. Pt's son would like her checked for C. diff toxin; he is suspicious she is a carrier as she doesn't have foul smelling or voluminous stools. No recent ABX. He reports she had EGD/colon in December through her GI in [place]; large hiatal hernia and diverticulosis were found. Report per pt son. [facility] chart has large volume of records faxed from [place]. While admitted she's had soft brown stool; no elevated WBC, afebrile. Nephrology is seeing her for her EZEQUIEL. Noted on Noncon CTAP on admission was a mild hepatomegaly, with marginal nodularity of the liver suggesting mild cirrhotic liver disease, no hepatic mass, no splenomegaly; also noted was large hiatal hernia, no bowel obstruction. She was never told she had liver disease. No ETOH use. Plts are not low, rather she has some thrombocytosis, and LFTs are WNL; HGB stable. She's had a decreased appetite lately but denies nausea, vomiting, hematemesis, abd pain, cramping, bloating, heartburn, dysphagia, melena, hematochezia, fever, chills. Allergies Allergy/AdvReac Type Severity Reaction Status Date / Time No Known Allergies Allergy Unverified 09/27/19 12:23 Home Medications Home Medications Medication Instructions Recorded Confirmed Type Benefiber Sugar Free (dextrin) See Rx Instructions .ROUTE .COMPLEX 09/27/19 09/27/19 History Bifidobacterium infantis [Align] 4 mg PO BID 09/27/19 09/27/19 History apixaban [Eliquis] 2.5 mg PO BID 09/27/19 09/27/19 History bumetanide 2 mg PO Q12 09/27/19 09/27/19 History bupropion HCl 150 mg PO DAILY 09/27/19 09/27/19 History calcium carbonate [Calcium Antacid] 200 mg PO .PRN PRN 09/27/19 09/27/19 History cholecalciferol (vitamin D3) 25 mcg PO DAILY 09/27/19 09/27/19 History colesevelam 1,250 mg PO BID 09/27/19 09/27/19 History hydrocortisone 1 applic TOPICAL HS 09/27/19 09/27/19 History iron,carbonyl-vitamin C [Vitron-C] 1 tab PO DAILY 09/27/19 09/27/19 History levothyroxine 125 mcg PO DAILY 09/27/19 09/27/19 History magnesium oxide 400 mg PO BID 09/27/19 09/27/19 History metoprolol tartrate 100 mg PO BID 09/27/19 09/27/19 History ondansetron 4 mg PO Q8H PRN 09/27/19 09/27/19 History potassium chloride 10 meq PO DAILY 09/27/19 09/27/19 History vancomycin 250 mg PO DIRECTED 09/27/19 09/27/19 History Patient History Medical History (Updated 09/28/19 @ 13:31 by Lucia Amaro PA-C) Acoustic neuroma s/p gamma knife Adnexal mass Anemia Atrial fibrillation C. difficile colitis Cerebrovascular disease Chronic diastolic heart failure Cirrhosis of liver CKD (chronic kidney disease) Diverticulosis Frequent falls Hiatal hernia History of Helicobacter pylori infection Hypertension Hypothyroidism Mitral regurgitation Thyroid adenoma Surgical History (Updated 09/27/19 @ 23:32 by Josr Mcconnell MD) Status post cholecystectomy Status post hernia repair Status post hysterectomy Status post left hip replacement Status post total hip replacement, right Status post total knee replacement, left Status post total knee replacement, right Family History (Updated 09/27/19 @ 23:34 by Josr Mcconnell MD) Mother Heart disease Hypertension Stroke Father Pneumoconiosis Social History Preferred Language: Yoruba Communication Ability: Impaired Pharmacy Technology Instructor Required: No Beliefs That Will Affect Care: None Current Living Situation: Personal Care Facility Current Living Situation Comment: [facility] Feels Safe at Home: Yes Smoking Status: Never smoker Hx Alcohol Use: No Hx Substance Use: No Review of Systems Constitutional: as per Subjective / HPI; no fever and no chills Respiratory: no cough and no dyspnea Cardiovascular: no chest pain and no edema Gastrointestinal: as per Subjective / HPI Genitourinary: no dysuria and no hematuria Integumentary: no rash and no lesions Hematologic / Lymphatic: no easy bleeding, no easy bruising, no coagulopathy and no night sweats Physical Exam Constitutional: WD/WN, vitals as above no acute distress Respiratory: normal respiratory effort, lungs clear to auscultation Cardiovascular: irregularly irregular, normal rate Gastrointestinal (Abdomen): normal bowel sounds, soft, nontender, no hepatosplenomegaly Inspection/Auscultation: abdomen not distended Skin: no rashes, warm and dry Psychiatric: Orientation: alert and oriented x 3 some short term memory deficits noted Results & Data ([facility]) Vital Signs (Past 12 Hours) Vital Signs Temp Pulse Pulse Resp BP Pulse Ox 09/28/19 07:21 36.5 C 89 16 120/68 96 09/28/19 07:10 90 09/28/19 04:27 125/73 09/28/19 04:24 37 C 71 18 97 09/28/19 00:17 71 09/27/19 23:00 36.6 C 69 20 115/63 91 Laboratory Results 09/28/19 09/28/19 09/28/19 Range/Units 07:45 07:45 07:45 PT (9.0-12.0) Seconds INR (0.9-1.1) APTT (21.0-31.0) Seconds PTT Ratio Sodium 132 L (136-145) mmol/L Potassium 4.4 (3.5-5.1) mmol/L Chloride 97 L (98-107) mmol/L Carbon Dioxide 30 (21-32) mmol/L Anion Gap 5.0 (3-11) BUN 34 H (7-18) mg/dl Creatinine 3.25 H (0.6-1.2) mg/dl Est Cr Clr Drug Dosing 13.4 ml/min Est GFR ( Amer) 14.7 Est GFR (Non-Af Amer) 12.7 BUN/Creatinine Ratio 10.4 (10-20) Glucose 91 (70-99) mg/dl Calcium 8.6 (8.5-10.1) mg/dl Magnesium (1.8-2.4) mg/dl Iron 40 (35-150) mcg/dl Transferrin 151 L (200-360) mg/dl Transferrin % Sat 19 (15-50) % Ferritin 578.5 H (8-388) ng/ml Total Bilirubin (0.2-1) mg/dl Direct Bilirubin (0-0.2) mg/dl AST (15-37) U/L ALT (12-78) U/L Alkaline Phosphatase (45-117) U/L Troponin I (0-0.045) ng/ml NT-Pro-B Natriuret Pep (0-1800) pg/ml Total Protein (6.4-8.2) gm/dl Total Protein (PEP) Pending Albumin (3.4-5.0) gm/dl Albumin (PEP) Pending Fkhzt-7-Rvliyevax Pending Uxjfa-1-Ddppsaljg Pending Siaz-4-Olfdmoxo Pending Huse-2-Cprofjwq Pending Gamma Globulins Pending Monoclonal Peak 3 Pending Ser Monoclonl Protein Pending Ser Monoclonal Prot 2 Pending PEP Interpretation Pending Lipase (73-393) U/L Vitamin B12 420 (211-911) pg/ml Folate 4.28 L (>5.38) ng/ml U Random Total Protein Ur Creatinine mg/dL Protein/Creatinin Ratio Urine Albumin (%) U Udwti-4-Pldkpsho (%) U Vopte-4-Xlidjhwa (%) U Beta Globulin (%) U Gamma Globulin (%) U Abnormal Prot Band 1 U Abnormal Prot Band 2 U Abnormal Prot Band 3 Urine PEP Interpret 09/28/19 09/27/19 09/27/19 Range/Units 07:39 12:42 12:15 PT 17.5 H (9.0-12.0) Seconds INR 1.7 H (0.9-1.1) APTT 36.2 H (21.0-31.0) Seconds PTT Ratio 1.3 Sodium (136-145) mmol/L Potassium (3.5-5.1) mmol/L Chloride (98-107) mmol/L Carbon Dioxide (21-32) mmol/L Anion Gap (3-11) BUN (7-18) mg/dl Creatinine (0.6-1.2) mg/dl Est Cr Clr Drug Dosing ml/min Est GFR ( Amer) Est GFR (Non-Af Amer) BUN/Creatinine Ratio (10-20) Glucose (70-99) mg/dl Calcium (8.5-10.1) mg/dl Magnesium 2.4 (1.8-2.4) mg/dl Iron (35-150) mcg/dl Transferrin (200-360) mg/dl Transferrin % Sat (15-50) % Ferritin (8-388) ng/ml Total Bilirubin 0.3 (0.2-1) mg/dl Direct Bilirubin < 0.1 (0-0.2) mg/dl AST 23 (15-37) U/L ALT 17 (12-78) U/L Alkaline Phosphatase 137 H (45-117) U/L Troponin I 0.036 (0-0.045) ng/ml NT-Pro-B Natriuret Pep 46508 H (0-1800) pg/ml Total Protein 6.8 D (6.4-8.2) gm/dl Total Protein (PEP) Albumin 1.8 L (3.4-5.0) gm/dl Albumin (PEP) Gqqus-5-Klveobllc Kuzof-1-Pznszcehl Nknl-8-Zxaikaot Rusm-0-Vvbiorjq Gamma Globulins Monoclonal Peak 3 Ser Monoclonl Protein Ser Monoclonal Prot 2 PEP Interpretation Lipase 155 (73-393) U/L Vitamin B12 (211-911) pg/ml Folate (>5.38) ng/ml U Random Total Protein Pending Ur Creatinine mg/dL Pending Protein/Creatinin Ratio Pending Urine Albumin (%) Pending U Yoovg-8-Qgzayyix (%) Pending U Hjxlp-5-Wxolbuvu (%) Pending U Beta Globulin (%) Pending U Gamma Globulin (%) Pending U Abnormal Prot Band 1 Pending U Abnormal Prot Band 2 Pending U Abnormal Prot Band 3 Pending Urine PEP Interpret Pending Diagnostic Findings Noncon CTAP Mild subsegmental bibasilar atelectasis. No pneumatosis or pneumoperitoneum. Moderate cardiomegaly. Spleen, and pancreas are unremarkable. Thickening of the adrenal glands suggests adrenal hyperplasia. Cholecystectomy. There is mild marginal nodularity of the liver suggests a mild cirrhotic liver disease without site is. No hepatic mass lesion or biliary ductal dilation. Liver is mildly enlarged. There are a few hypodensities of the left kidney suggestive of probable cysts measuring up to 2.0 cm. 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 No hydronephrosis. Pelvic structures are partially obscured secondary to streak artifact from bilateral hip total joint arthroplasties. Visualized urinary bladder is unremarkable. Indeterminate 2.5 x 1.9 cm cystic structure of the left adnexal/left iliac distribution. The uterus may be surgically absent. Extensive calcified plaque of the abdominal aorta without aneurysm. No adenopathy. Large hiatal hernia with majority of the stomach present within the thoracic cavity, partially imaged. Equivocal gastric wall thickening. No bowel obstruction or bowel wall thickening. Extensive colonic diverticulosis. No CT evidence of acute diverticulitis. Moderate fecal retention. There are a few right hemicolon scattered air-fluid levels. Noninflamed appendix. Tiny fat filled periumbilical hernia. Mild generalized body wall edema. Lumbar levoscoliosis. Demineralized appearance of the bones. Degenerative changes of the spine and pelvis. IMPRESSION: 1. Large hiatal hernia with the majority of the stomach present within the thoracic cavity, partially imaged. 2. No bowel obstruction or bowel wall thickening. 3. Extensive colonic diverticulosis without acute diverticulitis. 4. Findings suggestive of cirrhotic liver disease. No ascites. 5. Additional findings as above. Lumbar levoscoliosis.
[2019-09-28] MEDS: BuPROPion SR 150 MG TABCR PO SCH (08:15)
[2019-09-28] MEDS: CHOLECALCIFEROL 1,000 UNITS 25 MCG TAB PO SCH (08:16)
[2019-09-28] MEDS: LACTOBACILLUS ACIDOPHILUS (FLORANEX) TAB PO SCH ×3 (08:16→17:00)
[2019-09-28] MEDS: APIXABAN 2.5 MG TAB PO SCH ×2 (08:16→20:17)
[2019-09-28] MEDS: METOPROLOL TARTRATE 100 MG TAB PO SCH ×2 (08:16→20:18)
[2019-09-28 08:34] LABS: BUN Creatinine Ratio 10.4 (10-20); Calcium 8.6 mg/dl (8.5-10.1); Creatinine Clr Calc Pharmacy 13.4 ml/min; Est GFR (African American) 14.7; Est GFR (Non-African American) 12.7; Potassium 4.4 mmol/L (3.5-5.1)
[2019-09-28 08:38] LABS: Ferritin 578.5 ng/ml (8-388)
[2019-09-28 08:47] LABS: Folate (Folic Acid) 4.28 ng/ml (>5.38)
[2019-09-28] MEDS ORDERED: SODIUM CHLORIDE 0.9% 1000ML 1,000 ML IV SCH ×2 (11:45)
--- NOTE | 2019-09-28 15:23 | Hospitalist Progress Note ---
Date of Service September 28, 2019 Assessment & Plan (1) Acute kidney injury: Likely secondary to GI loss and has not been able to eat and drink much Serum creatinine 3.47 compared to 1.18 on 01/16/19. UA shows 4+ protein. No hydronephrosis on CT. Hold bumetanide. Check SPEP, UPEP. Awaiting Nephrology consult Will give cautious amount of intravenous fluid and was advised to drink more fluid Repeat PRP tomorrow (2) Chronic diastolic heart failure: History of chronic left ventricular diastolic heart failure. No overt CHF radiographically. Hold bumetanide due to worsening renal function. Will try cautious amount of intravenous fluid (3) Atrial fibrillation: Rate controlled on metoprolol. Continue anticoagulation with apixaban. (4) Hypertension: Continue metoprolol. Follow and titrate Rx. (5) Cerebrovascular disease: S/P ischemic stroke, apparently cardioembolic due to AF. Minimal residual deficit. Continue apixaban. (6) C. 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 Currently on vancomycin taper, but still having frequent loose stools. Consult GI-appreciate GI input and recommendation Awaiting stool studies and continue Vanco for now (7) Cirrhosis of liver: Mild cirrhosis of liver noted on CT. No apparent prior history. Current weight 74 kg, but pt reports 34 kg weight loss after her . May have CAM. Consult GI-we will have follow-up appointment as an outpatient. (8) Hypothyroidism: TSH = 4.690. Continue levothyroxine. (9) Anemia: Hgb 9.7. 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 Check Fe studies, B12, folate, SPEP, UPEP. Further management per Nephrology. (10) Adnexal mass: Incidental finding on CT: "Indeterminate 2.5 x 1.9 cm cystic structure of the left adnexal/left iliac distribution." Check old records. Follow as clinically indicated. (11) Frequent falls: Pt reports frequent falls, last episode about 1 month ago. 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 Also s/p stroke with minimal residual right-sided weakness. PT / OT evals. (12) DVT prophylaxis: Continue apixaban. Ambulate. (13) Do not resuscitate status: Per discussion with patient and her son. (14) Discharge planning issues: Anticipated return to [facility]. Nephrology follow-up with Dr. Zimmerman. Admission and Anticipated Discharge Date Admission Date: September 27, 2019 Subjective The patient was seen and examined in medical floor She remains weak and lethargic Complains today of ongoing diarrhea without any abdominal pain, nausea and or vomiting or distention Complains today of bilateral leg swelling which is chronic Review of Systems Review of Systems: All systems reviewed and are unremarkable except as noted below Constitutional: + fatigue, + weakness and + anorexia Cardiovascular: no chest pain Physical Exam Physical Exam: Lying in bed comfortably Constitutional: + ill appearing and + thin; no acute distress Eyes: PERRL, conjunctivae normal, anicteric sclerae ENMT: external ear and nose normal, oropharynx normal Neck: trachea midline, no thyromegaly Respiratory: normal respiratory effort; no respiratory distress Auscultation: lungs clear to auscultation bilaterally Cardiovascular: Rate/Rhythm: regular rate and regular rhythm Heart Sounds: no murmur Extremities: + edema (Bilateral leg edema chronic looks like lymphe shivam without any history of it) Gastrointestinal (Abdomen): Inspection/Auscultation: abdomen normal to inspection and normal bowel sounds; abdomen not distended Percussion/Palpation: abdomen soft; abdomen nontender Musculoskeletal: No acute arthritis in any joints Neurologic: moves all extremities; no focal motor deficits Lymphatic: no cervical or axillary lymphadenopathy Results & Data Results & Data ([facility]) Vital Signs (Past 12 Hours) Vital Signs Temp Pulse Pulse Resp BP Pulse Ox 09/28/19 15:14 79 09/28/19 11:38 36.5 C 88 16 102/66 95 09/28/19 07:21 36.5 C 89 16 120/68 96 09/28/19 07:10 90 09/28/19 04:27 125/73 09/28/19 04:24 37 C 71 18 97 Laboratory Results [facility] 09/28/19 07:45 Sodium 132 L Potassium 4.4 Chloride 97 L Carbon Dioxide 30 BUN 34 H Creatinine 3.25 H Glucose 91 Calcium 8.6 Cardiac Enzymes 09/27/19 Range/Units 12:15 Troponin I 0.036 (0-0.045) ng/ml Liver Function 09/27/19 Range/Units 12:15 Total Bilirubin 0.3 (0.2-1) mg/dl Direct Bilirubin < 0.1 (0-0.2) mg/dl AST 23 (15-37) U/L ALT 17 (12-78) U/L Alkaline Phosphatase 137 H (45-117) U/L Albumin 1.8 L (3.4-5.0) gm/dl Medications Administered Current Inpatient Medications Apixaban (Eliquis) 2.5 mg PO BID [facility] Stop: 10/27/19 20:59 Last Admin: 09/28/19 08:16 Dose: 2.5 mg Documented by: Bupropion HCl (Wellbutrin-Sr) 150 mg PO DAILY [facility] Stop: 10/28/19 08:59 Last Admin: 09/28/19 08:15 Dose: 150 mg Documented by: Calcium Carbonate (Tums) 500 mg PO . NEEDED PRN PRN Reason: Heartburn Stop: 10/27/19 19:00 Last Admin: 09/28/19 08:15 Dose: 500 mg Documented by: Hydrocortisone (Hydrocortisone 2.5%) 1 appln EXT HS [facility] Stop: 10/27/19 20:59 Last Admin: 09/27/19 20:08 Dose: 1 appln Documented by: Sodium Chloride (Nss 1000ml) 1,000 mls @ 125 mls/hr IV .Q8H [facility] Stop: 09/29/19 03:44 Last Admin: 09/28/19 11:34 Dose: 125 mls/hr Documented by: Lactobacillus Acidophilus (Floranex) 4 tab PO TIDM [facility] Stop: 10/27/19 19:00 Last Admin: 09/28/19 11:33 Dose: 4 tab Documented by: Levothyroxine Sodium (Synthroid) 125 mcg PO DAILYBB [facility] Stop: 10/28/19 06:29 Last Admin: 09/28/19 05:10 Dose: 125 mcg Documented by: Metoprolol Tartrate (Lopressor) 100 mg PO BID [facility] Stop: 10/27/19 20:59 Last Admin: 09/28/19 08:16 Dose: 100 mg Documented by: Miscellaneous (Order Awaiting Action) 1 ea N/A QS [facility] Stop: 10/28/19 00:00 Last Admin: 09/28/19 08:17 Dose: Not Given Documented by: Ondansetron HCl (Zofran Odt) 4 mg PO Q8H PRN PRN Reason: Nausea And Vomiting Stop: 10/27/19 19:22 Raspberry (Raspberry) 5 ml PO Q6 [facility] Stop: 10/11/19 19:00 Last Admin: 09/28/19 11:33 Dose: 5 ml Documented by: Vancomycin HCl (Vancomycin Hcl) 125 mg PO Q6 [facility] Stop: 10/07/19 19:00 Last Admin: 09/28/19 11:33 Dose: 125 mg Documented by: Vitamin D (Vitamin D3) 1,000 units PO DAILY [facility] Stop: 10/28/19 08:59 Last Admin: 09/28/19 08:16 Dose: 1,000 units Documented by:
--- NOTE | 2019-09-28 16:14 | Consultation Report ---
DATE OF CONSULTATION: 09/28/2019 NEPHROLOGY CONSULTATION REASON FOR CONSULT: Renal failure with nephrotic syndrome. HISTORY OF PRESENT ILLNESS: The patient is an 79-year-old female with preexisting chronic kidney disease V with a most recent creatinine of 3 as of 09/02/2019 with 7 gram proteinuria, previously followed by Dr. Daniel Prescott in [place], [place]. She has been having progressive fluid retention with lower extremity edema related with the nephrotic syndrome. 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 Prescott, but biopsy has not been done. She was supposed to see Dr. Jacey Zimmerman, but after the patient reported having shortness of breath, the patient was instructed to go to the Emergency Department and to the hospital. She has had increasing lower extremity edema for the last few months despite taking Bumex 2 mg twice daily. Other medical problems include history of diastolic congestive heart failure, atrial fibrillation, on Eliquis, mitral regurgitation, cerebrovascular disease. She has also been struggling with recurrent C. diff and even now has diarrhea. At this time, the patient is getting IV fluid and Bumex has been held. PAST MEDICAL AND SURGICAL HISTORY: Already detailed. On top of that, she also has a history of hypertension, history of H. pylori infection, severe hiatal hernia, hypothyroidism, history of acoustic neuroma, adnexal mass, status post cholecystectomy, hernia, hysterectomy, hip replacement, knee replacement. FAMILY HISTORY: Negative for renal disease or dialysis. SOCIAL HISTORY: She recently moved to [facility], which is an assisted living setting in [place]. Never smoked. No alcohol. HOME MEDICATIONS: List was reviewed in detail. Of special interest, she does take potassium supplement, magnesium oxide, Bumex 2 mg twice daily. REVIEW OF SYSTEMS: Positive for increasing lower extremity edema, increasing weakness, increasing shortness of breath, decreasing appetite. Does not get hungry. She has had about 10-15 pound weight loss in the last few months despite fluid retention. Otherwise, 12 systems reviewed and negative. PHYSICAL EXAMINATION: GENERAL: Elderly white female who does appear pale. She is not in any overt respiratory distress in resting position, but she is very short of breath going from the bathroom to the bed. HEENT: Mucous membranes moist. NECK: Supple. No jugular venous distention. CHEST: Bilaterally decreased breath sounds, clear to auscultation. CARDIOVASCULAR: S1 and S2 irregular, 3/6 systolic murmur heard. ABDOMEN: Soft, nontender. EXTREMITIES: Show 3+ edema bilaterally, pitting type. NEUROLOGIC: Awake, alert, oriented x3, moving all 4 extremities. VITAL SIGNS: Blood pressure 102/66, temperature 36.5, 95% on room air. LABORATORY TESTS: Blood work from this morning shows sodium 132, potassium 4.4, BUN 34, creatinine 3.25, calcium 8.6. As stated in HPI, her creatinine was 2.99 as of 09/02/2019 and it was around 1.2 in 11/2018. Chest x-ray shows cardiomegaly with some pulmonary congestion. ASSESSMENT AND PLAN: An 79-year-old female with nephrotic syndrome without biopsy as of now with progressive chronic kidney disease, which is now at stage V. This is not her new problem. She has been following with mobile solutions architect, Dr. Prescott in [place], [place]. I did review a lot of laboratories from his office. She had 7 gram proteinuria with a creatinine of 3 and was told Likely MPGN. Renal function has been declining steadily for the last 6-7 months. The fluid retention is from nephrotic syndrome. She is already starting to have symptoms of kidney failure with poor appetite, loss of taste, weight loss, very low albumin of 1.8. However, at this time she is having recurrent Clostridium difficile and her overall health condition is not good. So I also think just like her previous mobile solutions architect that doing biopsy of the kidney and pursuing aggressive chemotherapy may not be in her best interest. The next decision is about renal replacement therapy. She is already starting to have features of uremia and her renal prognosis is quite poor and at some point in the near future, she will be in need of dialysis. The patient is not too keen on aggressive measures. As per her advance directive, she has said no to all aggressive measures. However, she did not clearly say what she will do and she wanted to talk with her family members in greater detail before making a decision. Recommendations for now: 1. Stop IV fluid. 2. Continue to treat the Clostridium difficile. 3. Check C3, ANCA panel, immunofixation and Bence Cruz. 4. I would also like to check anti-PLA2R antibody if available. 5. No Bumex today but will restart from tomorrow. 6 Further discussion with patient and family regarding Dialysis and Biopsy. MTDD
[2019-09-28 17:11] LABS: Appearance Urine Clear (Clear); Bacteria Urine Automated Negative (Negative); Bilirubin Urine Negative (Negative); Blood Urine 3+ (Negative); Color Urine Yellow; Epithelial Cell Urine Auto >30 /lpf (0-5); Glucose Urine UA Negative (Negative); Ketones Urine Negative (Negative); Leukocyte Esterase Urine Trace (Negative); Nitrite Urine Negative (Negative); RBC Urine Automated >30 /hpf (0-4); Specific Gravity Urine 1.012 (1.000-1.030); Urobilinogen Urine Negative (Negative)
[2019-09-28 17:27] LABS: Protein Urine 4+ (Negative); Sulfosalicylic Acid Urine Positive (Negative)
[2019-09-28] MEDS: HYDROCORTISONE 2.5% CR 30 GM TUBE EXT SCH (20:18)
[2019-09-29] MEDS: CALCIUM CARBONATE 500 MG CHEWABLE TAB PO PRN (01:12)
[2019-09-29] MEDS: RASPBERRY SYRUP 5 ML UDP PO SCH ×2 (05:16→12:36)
[2019-09-29] MEDS: VANCOMYCIN HCL 125 MG/2.5ML SOLN PO SCH ×2 (05:16→12:37)
[2019-09-29] MEDS: LEVOTHYROXINE SODIUM 125 MCG TABLET PO SCH (05:17)
[2019-09-29 08:13] LABS: BUN Creatinine Ratio 9.4 (10-20); Calcium 8.9 mg/dl (8.5-10.1); Creatinine Clr Calc Pharmacy 13.7 ml/min; Est GFR (African American) 15.2; Est GFR (Non-African American) 13.1; Magnesium 2.2 mg/dl (1.8-2.4)
[2019-09-29] MEDS: METOPROLOL TARTRATE 100 MG TAB PO SCH ×2 (09:52→20:13)
[2019-09-29] MEDS: BuPROPion SR 150 MG TABCR PO SCH (09:52)
[2019-09-29] MEDS: CHOLECALCIFEROL 1,000 UNITS 25 MCG TAB PO SCH (09:52)
[2019-09-29] MEDS: LACTOBACILLUS ACIDOPHILUS (FLORANEX) TAB PO SCH ×3 (09:52→16:56)
[2019-09-29] MEDS: APIXABAN 2.5 MG TAB PO SCH ×2 (10:49→20:13)
[2019-09-29] MEDS: BUMETANIDE 1 MG TAB PO SCH ×2 (12:36→20:12)
--- NOTE | 2019-09-29 12:57 | Hospitalist Progress Note ---
Date of Service September 29, 2019 Assessment & Plan (1) Acute kidney injury: Likely secondary to GI loss and has not been able to eat and drink much Serum creatinine 3.47 compared to 1.18 on 01/16/19. UA shows 4+ protein. No hydronephrosis on CT. Hold bumetanide. Check SPEP, UPEP and other serological studies have been sent out Will give cautious amount of intravenous fluid and was advised to drink more fluid Creatinine remains at 3.12 without any change from prior Appreciate nephrology input and recommendation IV fluid has been discontinued Advised to drink about 1500 mL of fluid daily (2) Chronic diastolic heart failure: History of chronic left ventricular diastolic heart failure. No overt CHF radiographically. Hold bumetanide due to worsening renal function. Will try cautious amount of intravenous fluid IV fluid as No signs and/or symptoms of fluid overload (3) Atrial fibrillation: Rate controlled on metoprolol. Continue anticoagulation with apixaban. Denies any cardiac symptoms (4) Hypertension: Continue metoprolol. Follow and titrate Rx. (5) Cerebrovascular disease: S/P ischemic stroke, apparently cardioembolic due to AF. Minimal residual deficit. Continue apixaban. (6) C. 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 Currently on vancomycin taper, but still having frequent loose stools. Consult GI-appreciate GI input and recommendation Awaiting stool studies and continue Vanco for now Stool for C. difficile is negative Stool culture has been pending and the diarrhea seems to be improving (7) Cirrhosis of liver: Mild cirrhosis of liver noted on CT. No apparent prior history. Current weight 74 kg, but pt reports 34 kg weight loss after her . May have CAM. Consult GI-we will have follow-up appointment as an outpatient. (8) Hypothyroidism: TSH = 4.690. Continue levothyroxine. (9) Anemia: Hgb 9.7. 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 Check Fe studies, B12, folate, SPEP, UPEP. Further management per Nephrology. (10) Adnexal mass: Incidental finding on CT: "Indeterminate 2.5 x 1.9 cm cystic structure of the left adnexal/left iliac distribution." Check old records. Follow as clinically indicated. (11) Frequent falls: Pt reports frequent falls, last episode about 1 month ago. 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 Also s/p stroke with minimal residual right-sided weakness. PT / OT evals.-May need placement (12) DVT prophylaxis: Continue apixaban. Ambulate. (13) Do not resuscitate status: Per discussion with patient and her son. (14) Discharge planning issues: Anticipated return to [facility]. Nephrology follow-up with Dr. Zimmerman. Admission and Anticipated Discharge Date Admission Date: September 27, 2019 Subjective The patient was seen and examined in medical floor She remains weak and lethargic Complains today of ongoing diarrhea without any abdominal pain, nausea and or vomiting or distention Complains today of bilateral leg swelling which is chronic 09/29/2019 The patient was seen and examined in presence of the son She has been feeling a lot better and the diarrhea seems to be under control Denies any shortness of breath and/or palpitation, no nausea and/or vomiting Review of Systems Review of Systems: All systems reviewed and are unremarkable except as noted below Constitutional: + fatigue, + weakness and + anorexia Eyes: + worsening vision (no acute changes) Ear, Nose, Mouth, Throat: + hearing loss (left, due to acoustic neuroma) Respiratory: + dyspnea on exertion; no cough Gastrointestinal: + diarrhea/loose stools (Seems to be improving and has been having formed stool at times); no nausea, no vomiting, no constipation, no blood in stools and no melena Genitourinary: UTI 1-2 months ago, treated Neurologic: poor balance, occasional falls problems with short-term memory Psychiatric: adjusting to move Hematologic / Lymphatic: + easy bleeding and + easy bruising; no lymphadenopathy Physical Exam Physical Exam: Sitting on a chair without any acute symptoms Constitutional: + thin; no acute distress and not ill appearing Eyes: PERRL, conjunctivae normal, anicteric sclerae ENMT: external ear and nose normal, oropharynx normal Neck: trachea midline, no thyromegaly Respiratory: normal respiratory effort; no respiratory distress Auscultation: lungs clear to auscultation bilaterally Cardiovascular: Rate/Rhythm: regular rate and regular rhythm Heart Sounds: no murmur Extremities: + edema (Bilateral leg edema chronic looks like lymphedema without any history of it) Gastrointestinal (Abdomen): Inspection/Auscultation: abdomen normal to inspection and normal bowel sounds; abdomen not distended Percussion/Palpation: abdomen soft; abdomen nontender Musculoskeletal: No acute arthritis involving any joints Neurologic: moves all extremities; no focal motor deficits Alert, awake and oriented x3 Lymphatic: no cervical or axillary lymphadenopathy Results & Data Results & Data ([facility]) Vital Signs (Past 12 Hours) Vital Signs Temp Pulse Pulse Resp BP BP Pulse Ox 09/29/19 11:12 36.2 C L 79 18 143/79 H 98 09/29/19 09:49 36.4 C L 90 18 131/81 135/85 96 09/29/19 07:00 78 09/29/19 04:17 36.8 C 97 H 19 120/58 L 96 Laboratory Results BMP 09/29/19 06:56 Sodium 133 L Potassium 4.0 Chloride 98 Carbon Dioxide 28 BUN 30 H Creatinine 3.17 H Glucose 85 Calcium 8.9 Urine 09/28/19 Range/Units 16:42 Urine Color Yellow Urine Appearance Clear (Clear) Urine pH 8.0 H (4.5-7.5) Ur Specific [place] 1.012 (1.000-1.030) Urine Protein 4+ H (Negative) Urine Glucose (UA) Negative (Negative) Medications Administered Current Inpatient Medications Apixaban (Eliquis) 2.5 mg PO BID [facility]A Stop: 10/27/19 20:59 Last Admin: 09/29/19 10:49 Dose: 2.5 mg Documented by: Bumetanide (Bumex) 4 mg PO BID MINA Stop: 10/29/19 11:59 Last Admin: 09/29/19 12:36 Dose: 4 mg Documented by: Bupropion HCl (Wellbutrin-Sr) 150 mg PO DAILY [facility] Stop: 10/28/19 08:59 Last Admin: 09/29/19 09:52 Dose: 150 mg Documented by: Calcium Carbonate (Tums) 500 mg PO . NEEDED PRN PRN Reason: Heartburn Stop: 10/27/19 19:00 Last Admin: 09/29/19 01:12 Dose: 500 mg Documented by: Hydrocortisone (Hydrocortisone 2.5%) 1 appln EXT HS [facility] Stop: 10/27/19 20:59 Last Admin: 09/28/19 20:18 Dose: 1 appln Documented by: Lactobacillus Acidophilus (Floranex) 4 tab PO TIDM [facility] Stop: 10/27/19 19:00 Last Admin: 09/29/19 12:36 Dose: 4 tab Documented by: Levothyroxine Sodium (Synthroid) 125 mcg PO DAILYBB [facility] Stop: 10/28/19 06:29 Last Admin: 09/29/19 05:17 Dose: 125 mcg Documented by: Metoprolol Tartrate (Lopressor) 100 mg PO BID [facility] Stop: 10/27/19 20:59 Last Admin: 09/29/19 09:52 Dose: 100 mg Documented by: Miscellaneous (Order Awaiting Action) 1 ea N/A QS [facility] Stop: 10/28/19 00:00 Last Admin: 09/29/19 09:08 Dose: Not Given Documented by: Ondansetron HCl (Zofran Odt) 4 mg PO Q8H PRN PRN Reason: Nausea And Vomiting Stop: 10/27/19 19:22 Raspberry (Raspberry) 5 ml PO Q6 [facility] Stop: 10/11/19 19:00 Last Admin: 09/29/19 12:36 Dose: 5 ml Documented by: Vancomycin HCl (Vancomycin Hcl) 125 mg PO Q6 [facility] Stop: 10/07/19 19:00 Last Admin: 09/29/19 12:37 Dose: 125 mg Documented by: Vitamin D (Vitamin D3) 1,000 units PO DAILY [facility] Stop: 10/28/19 08:59 Last Admin: 09/29/19 09:52 Dose: 1,000 units Documented by:
--- NOTE | 2019-09-29 13:05 | Gastroenterology Progress Note ---
Date of Service September 29, 2019 Assessment & Plan (1) Chronic diarrhea: This is an 79 y/o female admitted with EZEQUIEL, with PMHx chronic intermittent diarrhea x 2 years, worsened since December 2018, with reported 2 + C. diff PCR through providers in [place] (I could not find positive results when I checked her 100 pgs or so of records in [facility]). She had no improvement in her symptoms, and was placed on a vanco taper 2 weeks ago, though had no repeat testing beforehand. C. diff testing here is negative. CT showed moderate fecal retention, no obstruction. Remains afebrile, normal WBC. Had a colonoscopy which was unremarkable in December 2018 per son, making IBD, microscopic colitis, or occult malignancy less likely. She may have overflow diarrhea causing her symptoms. Stool culture pending. There was a question of cirrhosis given marginal nodular appearance of liver on CT, though EGD in December without varices, US ABD in December noted a normal appearing liver. With absence of splenomegaly, tcytopenia, varices, HE, ascites, or risk factors, likelihood of chronic liver disease is low. - Await stool cultures to r/o infectious causes - Can DC vanco taper - If stool culture neg, would initiate bowel regimen to help with stool burden which may help episodes of loose stools (1 tablespoon of Benefiber mixed with 1 capful of Miralax in 8 oz liquid daily); can use Miralax 2-3 times a day if needed - Can f/u with GI as an output for her stool concerns and continue her care from previous GI in [place] - GI will sign off. Please call with any acute changes, questions or concerns. Please see addendum below with additional recommendation from my supervising physician. Admission and Anticipated Discharge Date Admission Date: September 27, 2019 Supervising Physician Co-Signing Physician Notes Abdomen is soft nt nd +bs Agree with further plan of care as per Lucia's assessment and plan. Subjective Patient seen and examined, chart reviewed. No acute events overnight. Had some loose stool overnight and this AM; no liquid stools. C diff neg. Stool culture pending. CKD being worked-up by nephrology. Pt herself feels about the same, tired, but no abd pain, n/v, melena, hematochezia, hematemesis, chest pain, fever, cough. Physical Exam Constitutional: WD/WN, vitals as above no acute distress Respiratory: normal respiratory effort, lungs clear to auscultation Gastrointestinal (Abdomen): normal bowel sounds, soft, nontender, no hepatosplenomegaly Inspection/Auscultation: abdomen not distended Skin: no rashes, warm and dry Psychiatric: Orientation: alert and oriented x 3 Results & Data ([facility]) Vital Signs (Past 12 Hours) Vital Signs Temp Pulse Pulse Resp BP BP Pulse Ox 09/29/19 11:12 36.2 C L 79 18 143/79 H 98 09/29/19 09:49 36.4 C L 90 18 131/81 135/85 96 09/29/19 07:00 78 09/29/19 04:17 36.8 C 97 H 19 120/58 L 96 Laboratory Results 09/29/19 09/29/19 09/29/19 Range/Units 07:45 06:56 06:56 Sodium 133 L (136-145) mmol/L Potassium 4.0 (3.5-5.1) mmol/L Chloride 98 (98-107) mmol/L Carbon Dioxide 28 (21-32) mmol/L Anion Gap 7.0 (3-11) BUN 30 H (7-18) mg/dl Creatinine 3.17 H (0.6-1.2) mg/dl Est Cr Clr Drug Dosing 13.7 ml/min Est GFR ( Amer) 15.2 Est GFR (Non-Af Amer) 13.1 BUN/Creatinine Ratio 9.4 L (10-20) Glucose 85 (70-99) mg/dl Calcium 8.9 (8.5-10.1) mg/dl Magnesium 2.2 (1.8-2.4) mg/dl Urine Color Urine Appearance (Clear) Urine pH (4.5-7.5) Ur Specific [place] (1.000-1.030) Urine Protein (Negative) Urine Glucose (UA) (Negative) Urine Ketones (Negative) Urine Blood (Negative) Urine Nitrite (Negative) Urine Bilirubin (Negative) Urine Urobilinogen (Negative) Ur Leukocyte Esterase (Negative) Urine WBC (Auto) (0-5) /hpf Urine RBC (Auto) (0-4) /hpf U Hyaline Cast (Auto) (0-5) /lpf U Epithel Cells (Auto) (0-5) /lpf Urine Bacteria (Auto) (Negative) Stl C. diff Tox B Gene (Neg) Serum Immunofixation Pending Anti-Proteinase 3 Pending Anti-Myeloperoxidase Pending ANCA Pending Complement C3 Pending Complement C4 Pending Tot Complement (CH50) Pending SARS-CoV-2 RNA (RT-PCR) Miscellaneous Test Pending 09/28/19 09/28/19 09/28/19 Range/Units 16:42 16:42 15:43 Sodium (136-145) mmol/L Potassium (3.5-5.1) mmol/L Chloride (98-107) mmol/L Carbon Dioxide (21-32) mmol/L Anion Gap (3-11) BUN (7-18) mg/dl Creatinine (0.6-1.2) mg/dl Est Cr Clr Drug Dosing ml/min Est GFR ( Amer) Est GFR (Non-Af Amer) BUN/Creatinine Ratio (10-20) Glucose (70-99) mg/dl Calcium (8.5-10.1) mg/dl Magnesium (1.8-2.4) mg/dl Urine Color Yellow Urine Appearance Clear (Clear) Urine pH 8.0 H (4.5-7.5) Ur Specific [place] 1.012 (1.000-1.030) Urine Protein 4+ H (Negative) Urine Glucose (UA) Negative (Negative) Urine Ketones Negative (Negative) Urine Blood 3+ H (Negative) Urine Nitrite Negative (Negative) Urine Bilirubin Negative (Negative) Urine Urobilinogen Negative (Negative) Ur Leukocyte Esterase Trace H (Negative) Urine WBC (Auto) 10-30 H (0-5) /hpf Urine RBC (Auto) >30 H (0-4) /hpf U Hyaline Cast (Auto) 1-5 (0-5) /lpf U Epithel Cells (Auto) >30 H (0-5) /lpf Urine Bacteria (Auto) Negative (Negative) Stl C. diff Tox B Gene Negative Cdiff Gene (Neg) Serum Immunofixation Anti-Proteinase 3 Anti-Myeloperoxidase ANCA Complement C3 Complement C4 Tot Complement (CH50) SARS-CoV-2 RNA (RT-PCR) Pending Miscellaneous Test
--- NOTE | 2019-09-29 13:16 | Progress Notes ---
DATE: 09/29/2019 NEPHROLOGY PROGRESS NOTE SUBJECTIVE: Overnight, no new issues. She feels slightly better. Still has massive edema. No major change in overall status. However, she had a discussion with her family and she has made up her mind about her renal care. OBJECTIVE: VITAL SIGNS: Blood pressure 143/79, temperature 36.2, 98% on room air, pulse rate 79, respiratory rate 18. HEENT: Mucous membranes moist. NECK: Supple. No jugular venous distention. CHEST: Bilaterally decreased breath sounds. CARDIOVASCULAR: S1, S2 irregular. Soft systolic murmur heard. ABDOMEN: Soft, nontender. EXTREMITIES: Show 3+ edema. LABORATORY TEST: From this morning was reviewed. Creatinine is in the low 3s. BUN 30. Sodium 133, potassium 4.0. BNP is 20,000. Hemoglobin 9.9. 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 For the last 6-7 months, she has had increasing proteinuria, nephrotic range, associated with classic symptoms of nephrotic syndrome. Etiology could be membranous glomerulonephritis versus membranoproliferative glomerulonephritis. The patient made up her mind that she will not do biopsy, will not undergo chemotherapy plan and does not want to do dialysis. She seemed very confident about her decision and was actually relieved after making that decision. The patient's son and her [id number] also agreed with her decision. Recommendations for now: 1. We will restart Bumex 4 mg twice daily. It is more important that we control her edema status for her overall comfort, so I would rather overdiurese than underdiurese in her case. 2. Pending serological test. I have also added anti-PLA2R antibody test. This is more of an academic curiosity than anything at this point. Follow up with nephrology either by telemedicine or in-person clinic visit sometime next week or the week after with me.
[2019-09-29] MEDS: POLYETHYLENE (MIRALAX) 17 GM PACK PO SCH (13:40)
[2019-09-29 19:05] LABS: Albumin 1.8 g/dL (3.8-4.8); Alpha 1 Globulin 0.4 g/dL (0.2-0.3); Alpha 2 Globulin 0.9 g/dL (0.5-0.9); Beta-1-Globulin 0.4 g/dL (0.4-0.6); Beta-2-Globulin 0.5 g/dL (0.2-0.5); Monoclonal Protein Band 1 DNR g/dL (NONE DETECTED); Monoclonal Protein Band 2 DNR g/dL (NONE DETECTED); Monoclonal Protein Band 3 DNR g/dL (NONE DETECTED)
[2019-09-29] MEDS: HYDROCORTISONE 2.5% CR 30 GM TUBE EXT SCH (20:12)
[2019-09-30] MEDS: LEVOTHYROXINE SODIUM 125 MCG TABLET PO SCH (05:33)
[2019-09-30] MEDS: METOPROLOL TARTRATE 100 MG TAB PO SCH ×2 (09:26→20:28)
[2019-09-30] MEDS: POLYETHYLENE (MIRALAX) 17 GM PACK PO SCH (09:27)
[2019-09-30] MEDS: BUMETANIDE 1 MG TAB PO SCH ×2 (09:28→17:26)
[2019-09-30] MEDS: BuPROPion SR 150 MG TABCR PO SCH (09:28)
[2019-09-30] MEDS: CHOLECALCIFEROL 1,000 UNITS 25 MCG TAB PO SCH (09:28)
[2019-09-30] MEDS: APIXABAN 2.5 MG TAB PO SCH ×2 (09:28→20:28)
[2019-09-30] MEDS: LACTOBACILLUS ACIDOPHILUS (FLORANEX) TAB PO SCH ×3 (09:28→17:26)
[2019-09-30 10:41] LABS: BUN Creatinine Ratio 8.9 (10-20); Calcium 9.1 mg/dl (8.5-10.1); Creatinine Clr Calc Pharmacy 13.2 ml/min; Est GFR (African American) 14.9; Est GFR (Non-African American) 12.9; Potassium 3.7 mmol/L (3.5-5.1)
--- NOTE | 2019-09-30 15:07 | Hospitalist Progress Note ---
Date of Service September 30, 2019 Assessment & Plan (1) Acute kidney injury: Likely secondary to GI loss and has not been able to eat and drink much Serum creatinine 3.47 compared to 1.18 on 01/16/19. UA shows 4+ protein. No hydronephrosis on CT. Hold bumetanide. Check SPEP, UPEP and other serological studies have been sent out Will give cautious amount of intravenous fluid and was advised to drink more fluid Creatinine remains at 3.12 without any change from prior Appreciate nephrology input and recommendation IV fluid has been discontinued Advised to drink about 1500 mL of fluid daily Has been getting oral bumetanide 4 mg twice daily and the creatinine remains stable Discussed with procedure writer and the patient can go home on bumetanide Likely discharge on Wednesday (2) Chronic diastolic heart failure: History of chronic left ventricular diastolic heart failure. No overt CHF radiographically. Hold bumetanide due to worsening renal function. Will try cautious amount of intravenous fluid IV fluid as No signs and/or symptoms of fluid overload Continue bumetanide 1 mg twice daily (3) Atrial fibrillation: Rate controlled on metoprolol. Continue anticoagulation with apixaban. Denies any cardiac symptoms (4) Hypertension: Continue metoprolol. Follow and titrate Rx. (5) Cerebrovascular disease: S/P ischemic stroke, apparently cardioembolic due to AF. Minimal residual deficit. Continue apixaban. (6) C. 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 Currently on vancomycin taper, but still having frequent loose stools. Consult GI-appreciate GI input and recommendation Awaiting stool studies and continue Vanco for now Stool for C. difficile is negative Stool culture has been negative Stop vancomycin and will give stool softener as advised by GI (7) Cirrhosis of liver: Mild cirrhosis of liver noted on CT. No apparent prior history. Current weight 74 kg, but pt reports 34 kg weight loss after her . May have CAM. Consult GI-we will have follow-up appointment as an outpatient. (8) Hypothyroidism: TSH = 4.690. Continue levothyroxine. (9) Anemia: Hgb 9.7. 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 Check Fe studies, B12, folate, SPEP, UPEP. Further management per Nephrology. (10) Adnexal mass: Incidental finding on CT: "Indeterminate 2.5 x 1.9 cm cystic structure of the left adnexal/left iliac distribution." Check old records. Follow as clinically indicated. (11) Frequent falls: Pt reports frequent falls, last episode about 1 month ago. 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 Also s/p stroke with minimal residual right-sided weakness. PT / OT evals.-May need placement (12) DVT prophylaxis: Continue apixaban. Ambulate. (13) Do not resuscitate status: Per discussion with patient and her son. (14) Discharge planning issues: Anticipated return to [facility]. Nephrology follow-up with Dr. Zimmerman. Likely will discharge on Wednesday Admission and Anticipated Discharge Date Admission Date: September 27, 2019 Subjective The patient was seen and examined in medical floor She remains weak and lethargic Complains today of ongoing diarrhea without any abdominal pain, nausea and or vomiting or distention Complains today of bilateral leg swelling which is chronic 09/29/2019 The patient was seen and examined in presence of the son She has been feeling a lot better and the diarrhea seems to be under control Denies any shortness of breath and/or palpitation, no nausea and/or vomiting 09/30/2019 The patient was seen and examined in medical floor She remains stable and except generalized weakness she denies any other symptoms Her legs remain swollen but denies any other fluid overload symptoms Review of Systems Review of Systems: All systems reviewed and are unremarkable except as noted below Constitutional: + fatigue, + weakness and + anorexia Eyes: + worsening vision (no acute changes) Ear, Nose, Mouth, Throat: + hearing loss (left, due to acoustic neuroma) Respiratory: + dyspnea on exertion; no cough Gastrointestinal: + diarrhea/loose stools (Seems to be improving and has been having formed stool at times); no nausea, no vomiting, no constipation, no blood in stools and no melena Genitourinary: UTI 1-2 months ago, treated Neurologic: poor balance, occasional falls problems with short-term memory Psychiatric: adjusting to move Hematologic / Lymphatic: + easy bleeding and + easy bruising; no lymphadenopathy Physical Exam Physical Exam: Lying in bed comfortably Constitutional: + thin; no acute distress and not ill appearing Eyes: PERRL, conjunctivae normal, anicteric sclerae ENMT: external ear and nose normal, oropharynx normal Neck: trachea midline, no thyromegaly Respiratory: normal respiratory effort; no respiratory distress Auscultation: lungs clear to auscultation bilaterally Cardiovascular: Rate/Rhythm: regular rate and regular rhythm Heart Sounds: no murmur Extremities: + edema (Bilateral leg edema chronic looks like lymphedema without any history of it) Gastrointestinal (Abdomen): Inspection/Auscultation: abdomen normal to inspection and normal bowel sounds; abdomen not distended Percussion/Palpation: abdomen soft; abdomen nontender Musculoskeletal: No acute arthritis involving any joints Neurologic: moves all extremities; no focal motor deficits Alert, awake and oriented x3 Lymphatic: no cervical or axillary lymphadenopathy Results & Data Results & Data ([facility]) Vital Signs (Past 12 Hours) Vital Signs Temp Pulse Resp BP Pulse Ox 09/30/19 11:34 36.4 C L 73 18 115/71 97 09/30/19 07:32 36.5 C 87 94 H 112/67 09/30/19 03:55 36.8 C 86 18 130/73 90 Laboratory Results BMP 09/30/19 09:57 Sodium 132 L Potassium 3.7 Chloride 96 L Carbon Dioxide 31 BUN 29 H Creatinine 3.21 H Glucose 115 H Calcium 9.1 Medications Administered Current Inpatient Medications Apixaban (Eliquis) 2.5 mg PO BID [facility] Stop: 10/27/19 20:59 Last Admin: 09/30/19 09:28 Dose: 2.5 mg Documented by: Bumetanide (Bumex) 4 mg PO BID [facility] Stop: 10/29/19 11:59 Last Admin: 09/30/19 09:28 Dose: 4 mg Documented by: Bupropion HCl (Wellbutrin-Sr) 150 mg PO DAILY [facility] Stop: 10/28/19 08:59 Last Admin: 09/30/19 09:28 Dose: 150 mg Documented by: Calcium Carbonate (Tums) 500 mg PO . NEEDED PRN PRN Reason: Heartburn Stop: 10/27/19 19:00 Last Admin: 09/29/19 01:12 Dose: 500 mg Documented by: Hydrocortisone (Hydrocortisone 2.5%) 1 appln EXT HS [facility] Stop: 10/27/19 20:59 Last Admin: 09/29/19 20:12 Dose: Not Given Documented by: Lactobacillus Acidophilus (Floranex) 4 tab PO TIDM [facility] Stop: 10/27/19 19:00 Last Admin: 09/30/19 13:26 Dose: 4 tab Documented by: Levothyroxine Sodium (Synthroid) 125 mcg PO DAILYBB [facility] Stop: 10/28/19 06:29 Last Admin: 09/30/19 05:33 Dose: 125 mcg Documented by: Metoprolol Tartrate (Lopressor) 100 mg PO BID [facility] Stop: 10/27/19 20:59 Last Admin: 09/30/19 09:26 Dose: 100 mg Documented by: Miscellaneous (Order Awaiting Action) 1 ea N/A QS [facility] Stop: 10/28/19 00:00 Last Admin: 09/30/19 09:18 Dose: Not Given Documented by: Ondansetron HCl (Zofran Odt) 4 mg PO Q8H PRN PRN Reason: Nausea And Vomiting Stop: 10/27/19 19:22 Polyethylene Glycol (Miralax Powder Packet) 17 gm PO DAILY [facility] Stop: 10/29/19 13:14 Last Admin: 09/30/19 09:27 Dose: 17 gm Documented by: Vitamin D (Vitamin D3) 1,000 units PO DAILY [facility] Stop: 10/28/19 08:59 Last Admin: 09/30/19 09:28 Dose: 1,000 units Documented by:
[2019-09-30] MEDS: HYDROCORTISONE 2.5% CR 30 GM TUBE EXT SCH (20:28)
[2019-10-01] MEDS: LEVOTHYROXINE SODIUM 125 MCG TABLET PO SCH (06:33)
[2019-10-01 07:12] LABS: BUN Creatinine Ratio 9.4 (10-20); Calcium 8.9 mg/dl (8.5-10.1); Creatinine Clr Calc Pharmacy 13.9 ml/min; Est GFR (African American) 15.8; Est GFR (Non-African American) 13.6; Potassium 3.4 mmol/L (3.5-5.1)
[2019-10-01] MEDS ORDERED: POTASSIUM CHLORIDE 20 MEQ TABCR PO STA (08:15)
[2019-10-01] MEDS: APIXABAN 2.5 MG TAB PO SCH ×2 (09:34→21:38)
[2019-10-01] MEDS: BuPROPion SR 150 MG TABCR PO SCH (09:34)
[2019-10-01] MEDS: CHOLECALCIFEROL 1,000 UNITS 25 MCG TAB PO SCH (09:34)
[2019-10-01] MEDS: METOPROLOL TARTRATE 100 MG TAB PO SCH ×2 (09:34→21:38)
[2019-10-01] MEDS: BUMETANIDE 1 MG TAB PO SCH ×2 (09:34→16:36)
[2019-10-01] MEDS: LACTOBACILLUS ACIDOPHILUS (FLORANEX) TAB PO SCH ×3 (09:35→16:36)
[2019-10-01] MEDS: POLYETHYLENE (MIRALAX) 17 GM PACK PO SCH (09:40)
--- NOTE | 2019-10-01 15:38 | Hospitalist Progress Note ---
Date of Service October 01, 2019 Assessment & Plan (1) Acute kidney injury: Likely secondary to GI loss and has not been able to eat and drink much Serum creatinine 3.47 compared to 1.18 on 01/16/19. UA shows 4+ protein. No hydronephrosis on CT. Hold bumetanide. Check SPEP, UPEP and other serological studies have been sent out Will give cautious amount of intravenous fluid and was advised to drink more fluid Creatinine remains at 3.12 without any change from prior Appreciate nephrology input and recommendation IV fluid has been discontinued Advised to drink about 1500 mL of fluid daily Has been getting oral bumetanide 4 mg twice daily and the creatinine remains stable Discussed with special procedures nurse and the patient can go home on bumetanide Likely discharge on Wednesday Has been diuresing enough and the creatinine is stable (2) Chronic diastolic heart failure: History of chronic left ventricular diastolic heart failure. No overt CHF radiographically. Hold bumetanide due to worsening renal function. Will try cautious amount of intravenous fluid IV fluid as No signs and/or symptoms of fluid overload Continue bumetanide 4 mg twice daily We will continue with current dose of bumetanide and potassium supplement (3) Atrial fibrillation: Rate controlled on metoprolol. Continue anticoagulation with apixaban. Denies any cardiac symptoms (4) Hypertension: Continue metoprolol. Follow and titrate Rx. (5) Cerebrovascular disease: S/P ischemic stroke, apparently cardioembolic due to AF. Minimal residual deficit. Continue apixaban. (6) C. 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 Currently on vancomycin taper, but still having frequent loose stools. Consult GI-appreciate GI input and recommendation Awaiting stool studies and continue Vanco for now Stool for C. difficile is negative Stool culture has been negative Stop vancomycin and will give stool softener as advised by GI (7) Cirrhosis of liver: Mild cirrhosis of liver noted on CT. No apparent prior history. Current weight 74 kg, but pt reports 34 kg weight loss after her . May have CAM. Consult GI-we will have follow-up appointment as an outpatient. (8) Hypothyroidism: TSH = 4.690. Continue levothyroxine. (9) Anemia: Hgb 9.7. 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 Check Fe studies, B12, folate, SPEP, UPEP. Further management per Nephrology. (10) Adnexal mass: Incidental finding on CT: "Indeterminate 2.5 x 1.9 cm cystic structure of the left adnexal/left iliac distribution." Check old records. Follow as clinically indicated. (11) Frequent falls: Pt reports frequent falls, last episode about 1 month ago. 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 Also s/p stroke with minimal residual right-sided weakness. PT / OT evals.-May need placement (12) DVT prophylaxis: Continue apixaban. Ambulate. (13) Do not resuscitate status: Per discussion with patient and her son. (14) Discharge planning issues: Anticipated return to [facility]. Nephrology follow-up with Dr. Zimmerman. Likely will discharge on Wednesday Admission and Anticipated Discharge Date Admission Date: September 27, 2019 Subjective The patient was seen and examined in medical floor She remains weak and lethargic Complains today of ongoing diarrhea without any abdominal pain, nausea and or vomiting or distention Complains today of bilateral leg swelling which is chronic 09/29/2019 The patient was seen and examined in presence of the son She has been feeling a lot better and the diarrhea seems to be under control Denies any shortness of breath and/or palpitation, no nausea and/or vomiting 09/30/2019 The patient was seen and examined in medical floor She remains stable and except generalized weakness she denies any other symptoms Her legs remain swollen but denies any other fluid overload symptoms 10/01/2019 Patient was seen and examined in medical floor She complains today of weakness and tiredness but denies any other acute symptoms She has been making out urine okay Review of Systems Review of Systems: All systems reviewed and are unremarkable except as noted below Constitutional: + fatigue, + weakness and + anorexia Eyes: + worsening vision (no acute changes) Ear, Nose, Mouth, Throat: + hearing loss (left, due to acoustic neuroma) Respiratory: + dyspnea on exertion; no cough Cardiovascular: no chest pain and no edema Gastrointestinal: + diarrhea/loose stools (Seems to be improving and has been having formed stool at times); no nausea, no vomiting, no constipation, no blood in stools and no melena Genitourinary: UTI 1-2 months ago, treated Neurologic: poor balance, occasional falls problems with short-term memory Psychiatric: adjusting to move Hematologic / Lymphatic: + easy bleeding and + easy bruising; no lymphadenopathy Physical Exam Physical Exam: Lying in bed comfortably Constitutional: + thin; no acute distress and not ill appearing Eyes: PERRL, conjunctivae normal, anicteric sclerae ENMT: external ear and nose normal, oropharynx normal Neck: trachea midline, no thyromegaly Respiratory: normal respiratory effort; no respiratory distress Auscultation: lungs clear to auscultation bilaterally Cardiovascular: Rate/Rhythm: regular rate and regular rhythm Heart Sounds: no murmur Extremities: + edema (Bilateral leg edema chronic looks like lymphedema without any history of it trace edema bilaterally) Gastrointestinal (Abdomen): Inspection/Auscultation: abdomen normal to inspection and normal bowel sounds; abdomen not distended Percussion/Palpation: abdomen soft; abdomen nontender Musculoskeletal: No acute arthritis involving any joints Neurologic: moves all extremities; no focal motor deficits Alert, awake and oriented x3. Generally weak and lethargic Lymphatic: no cervical or axillary lymphadenopathy Results & Data Results & Data ([facility]) Vital Signs (Past 12 Hours) Vital Signs Temp Pulse Pulse Resp BP BP Pulse Ox 10/01/19 12:15 36.4 C L 77 17 147/81 H 98 10/01/19 07:57 36.3 C L 87 17 148/71 H 97 10/01/19 07:23 78 10/01/19 05:35 36.6 C 79 18 114/63 97 Laboratory Results [facility] 10/01/19 06:01 Sodium 136 Potassium 3.4 L Chloride 96 L Carbon Dioxide 33 H BUN 29 H Creatinine 3.07 H Glucose 93 Calcium 8.9 Medications Administered Current Inpatient Medications Apixaban (Eliquis) 2.5 mg PO BID [facility] Stop: 10/27/19 20:59 Last Admin: 10/01/19 09:34 Dose: 2.5 mg Documented by: Bumetanide (Bumex) 4 mg PO BID17 [facility] Stop: 10/30/19 16:59 Last Admin: 10/01/19 09:34 Dose: 4 mg Documented by: Bupropion HCl (Wellbutrin-Sr) 150 mg PO DAILY [facility] Stop: 10/28/19 08:59 Last Admin: 10/01/19 09:34 Dose: 150 mg Documented by: Calcium Carbonate (Tums) 500 mg PO . NEEDED PRN PRN Reason: Heartburn Stop: 10/27/19 19:00 Last Admin: 09/29/19 01:12 Dose: 500 mg Documented by: Hydrocortisone (Hydrocortisone 2.5%) 1 appln EXT HS [facility] Stop: 10/27/19 20:59 Last Admin: 09/30/19 20:28 Dose: 1 appln Documented by: Lactobacillus Acidophilus (Floranex) 4 tab PO TIDM [facility] Stop: 10/27/19 19:00 Last Admin: 10/01/19 11:36 Dose: 4 tab Documented by: Levothyroxine Sodium (Synthroid) 125 mcg PO DAILYBB [facility] Stop: 10/28/19 06:29 Last Admin: 10/01/19 06:33 Dose: 125 mcg Documented by: Metoprolol Tartrate (Lopressor) 100 mg PO BID [facility] Stop: 10/27/19 20:59 Last Admin: 10/01/19 09:34 Dose: 100 mg Documented by: Miscellaneous (Order Awaiting Action) 1 ea N/A QS [facility] Stop: 10/28/19 00:00 Last Admin: 10/01/19 07:41 Dose: Not Given Documented by: Ondansetron HCl (Zofran Odt) 4 mg PO Q8H PRN PRN Reason: Nausea And Vomiting Stop: 10/27/19 19:22 Polyethylene Glycol (Miralax Powder Packet) 17 gm PO DAILY [facility] Stop: 10/29/19 13:14 Last Admin: 10/01/19 09:40 Dose: 17 gm Documented by: Vitamin D (Vitamin D3) 1,000 units PO DAILY [facility] Stop: 10/28/19 08:59 Last Admin: 10/01/19 09:34 Dose: 1,000 units Documented by:
[2019-10-01] MEDS: HYDROCORTISONE 2.5% CR 30 GM TUBE EXT SCH (21:38)
[2019-10-02] MEDS: LEVOTHYROXINE SODIUM 125 MCG TABLET PO SCH (05:19)
[2019-10-02] MEDS: BuPROPion SR 150 MG TABCR PO SCH (09:17)
[2019-10-02] MEDS: CHOLECALCIFEROL 1,000 UNITS 25 MCG TAB PO SCH (09:17)
[2019-10-02] MEDS: BUMETANIDE 1 MG TAB PO SCH ×2 (09:17→16:41)
[2019-10-02] MEDS: METOPROLOL TARTRATE 100 MG TAB PO SCH ×2 (09:18→20:15)
[2019-10-02] MEDS: POLYETHYLENE (MIRALAX) 17 GM PACK PO SCH (09:18)
[2019-10-02] MEDS: LACTOBACILLUS ACIDOPHILUS (FLORANEX) TAB PO SCH ×3 (09:18→16:42)
[2019-10-02] MEDS: APIXABAN 2.5 MG TAB PO SCH ×2 (09:18→20:15)
[2019-10-02 09:21] LABS: BUN Creatinine Ratio 9.3 (10-20); Calcium 9.3 mg/dl (8.5-10.1); Creatinine Clr Calc Pharmacy 13.4 ml/min; Est GFR (African American) 15.5; Est GFR (Non-African American) 13.4
[2019-10-02 10:04] LABS: Creatinine Ur 58 mg/dL (20-275); Protein, Urine Random 737 mg/dL (5-24); Ur Protein/Creat Ratio mg/g 12707 mg/g creat (21-161); Urine Abnormal Protein Band 1 DNR mg/dL (NONE DETECTED); Urine Abnormal Protein Band 2 DNR mg/dL (NONE DETECTED); Urine Abnormal Protein Band 3 DNR mg/dL (NONE DETECTED); Urine Protein/Creatinine Ratio 12.707 (0.021-0.161)
[2019-10-02] MEDS ORDERED: LOPERAMIDE HCL 2 MG CAP PO PRN (10:44)
--- NOTE | 2019-10-02 13:15 | Hospitalist Progress Note ---
Date of Service October 02, 2019 Assessment & Plan (1) Acute kidney injury: Likely secondary to GI loss and has not been able to eat and drink much Serum creatinine 3.47 compared to 1.18 on 01/16/19. UA shows 4+ protein. No hydronephrosis on CT. Hold bumetanide. Check SPEP, UPEP and other serological studies have been sent out-results and pending as of 10/02/2019 Will give cautious amount of intravenous fluid and was advised to drink more fluid Creatinine remains at 3.12 without any change from prior Appreciate nephrology input and recommendation IV fluid has been discontinued Advised to drink about 1500 mL of fluid daily Has been getting oral bumetanide 4 mg twice daily and the creatinine remains stable Discussed with network security administrator and the patient can go home on bumetanide Has had dizziness with presyncopal episode this morning likely secondary to dehydration We will get orthostatic vitals and advised to take extreme precaution to avoid fall Bumetanide doses have been decreased to 2 mg twice daily as at home Awaiting to be placed to [facility] (2) Chronic diastolic heart failure: History of chronic left ventricular diastolic heart failure. No overt CHF radiographically. Hold bumetanide due to worsening renal function. Will try cautious amount of intravenous fluid IV fluid as No signs and/or symptoms of fluid overload Continue bumetanide 4 mg twice daily We will continue with current dose of bumetanide and potassium supplement Will continue bumetanide as an outpatient (3) Atrial fibrillation: Rate controlled on metoprolol. Continue anticoagulation with apixaban. Denies any cardiac symptoms (4) Hypertension: Continue metoprolol. Follow and titrate Rx. (5) Cerebrovascular disease: S/P ischemic stroke, apparently cardioembolic due to AF. Minimal residual deficit. Continue apixaban. (6) C. 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 Currently on vancomycin taper, but still having frequent loose stools. Consult GI-appreciate GI input and recommendation Awaiting stool studies and continue Vanco for now Stool for C. difficile is negative Stool culture has been negative Stop vancomycin and will give stool softener as advised by GI Still having diarrhea-we will try Imodium as needed (7) Cirrhosis of liver: Mild cirrhosis of liver noted on CT. No apparent prior history. Current weight 74 kg, but pt reports 34 kg weight loss after her . May have CAM. Consult GI-we will have follow-up appointment as an outpatient. (8) Hypothyroidism: TSH = 4.690. Continue levothyroxine. (9) Anemia: Hgb 9.7. 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 Check Fe studies, B12, folate, SPEP, UPEP. Further management per Nephrology. (10) Adnexal mass: Incidental finding on CT: "Indeterminate 2.5 x 1.9 cm cystic structure of the left adnexal/left iliac distribution." Check old records. Follow as clinically indicated. (11) Frequent falls: Pt reports frequent falls, last episode about 1 month ago. 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 Also s/p stroke with minimal residual right-sided weakness. PT / OT evals.-May need placement (12) DVT prophylaxis: Continue apixaban. Ambulate. (13) Do not resuscitate status: Per discussion with patient and her son. (14) Discharge planning issues: Anticipated return to [facility]. Nephrology follow-up with Dr. Zimmerman. The family member wants her to go to [facility] Referrals have been made Admission and Anticipated Discharge Date Admission Date: September 27, 2019 Subjective The patient was seen and examined in medical floor She remains weak and lethargic Complains today of ongoing diarrhea without any abdominal pain, nausea and or vomiting or distention Complains today of bilateral leg swelling which is chronic 09/29/2019 The patient was seen and examined in presence of the son She has been feeling a lot better and the diarrhea seems to be under control Denies any shortness of breath and/or palpitation, no nausea and/or vomiting 09/30/2019 The patient was seen and examined in medical floor She remains stable and except generalized weakness she denies any other symptoms Her legs remain swollen but denies any other fluid overload symptoms 10/01/2019 Patient was seen and examined in medical floor She complains today of weakness and tiredness but denies any other acute symptoms She has been making out urine okay 10/02/2019 The patient was seen and examined in medical floor in presence of the daughter and the son She complains to have generally weak and has had presyncopal episode while ambulating Denies any acute other symptoms Review of Systems Review of Systems: All systems reviewed and are unremarkable except as noted below Constitutional: + fatigue, + weakness and + anorexia Eyes: + worsening vision (no acute changes) Ear, Nose, Mouth, Throat: + hearing loss (left, due to acoustic neuroma) Respiratory: + dyspnea on exertion; no cough Gastrointestinal: + diarrhea/loose stools (Still having diarrhea); no nausea, no vomiting, no constipation, no blood in stools and no melena Genitourinary: UTI 1-2 months ago, treated Neurologic: poor balance, occasional falls problems with short-term memory Psychiatric: adjusting to move Hematologic / Lymphatic: + easy bleeding and + easy bruising; no lymphadenopathy Physical Exam Physical Exam: Lying in bed comfortably Constitutional: + thin; no acute distress and not ill appearing Eyes: PERRL, conjunctivae normal, anicteric sclerae ENMT: external ear and nose normal, oropharynx normal Neck: trachea midline, no thyromegaly Respiratory: normal respiratory effort; no respiratory distress Auscultation: lungs clear to auscultation bilaterally Cardiovascular: Rate/Rhythm: regular rate and regular rhythm Heart Sounds: no murmur Extremities: + edema (Bilateral leg edema chronic -has been improving with increasing dose of bumetanide) Gastrointestinal (Abdomen): Inspection/Auscultation: abdomen normal to inspection and normal bowel sounds; abdomen not distended Percussion/Palpation: abdomen soft; abdomen nontender Musculoskeletal: No acute arthritis involving any joints Neurologic: moves all extremities; no focal motor deficits Alert, awake and oriented x3 Lymphatic: no cervical or axillary lymphadenopathy Results & Data Results & Data ([facility]) Vital Signs (Past 12 Hours) Vital Signs Temp Pulse Pulse Resp BP BP Pulse Ox 10/02/19 11:40 36.4 C L 78 20 106/62 98 10/02/19 09:53 82 10/02/19 09:15 95 H 126/76 95 10/02/19 07:38 77 10/02/19 07:14 36.7 C 81 16 105/61 96 10/02/19 04:05 36.5 C 90 16 109/68 98 Laboratory Results [facility] 10/02/19 08:29 Sodium 132 L Potassium 4.0 D Chloride 94 L Carbon Dioxide 32 BUN 29 H Creatinine 3.11 H Glucose 95 Calcium 9.3 Medications Administered Current Inpatient Medications Apixaban (Eliquis) 2.5 mg PO BID [facility] Stop: 10/27/19 20:59 Last Admin: 10/02/19 09:18 Dose: 2.5 mg Documented by: Bumetanide (Bumex) 2 mg PO BID17 [facility] Stop: 11/01/19 16:59 Bupropion HCl (Wellbutrin-Sr) 150 mg PO DAILY [facility] Stop: 10/28/19 08:59 Last Admin: 10/02/19 09:17 Dose: 150 mg Documented by: Calcium Carbonate (Tums) 500 mg PO . NEEDED PRN PRN Reason: Heartburn Stop: 10/27/19 19:00 Last Admin: 09/29/19 01:12 Dose: 500 mg Documented by: Hydrocortisone (Hydrocortisone 2.5%) 1 appln EXT HS [facility] Stop: 10/27/19 20:59 Last Admin: 10/01/19 21:38 Dose: 1 appln Documented by: Lactobacillus Acidophilus (Floranex) 4 tab PO TIDM [facility] Stop: 10/27/19 19:00 Last Admin: 10/02/19 12:22 Dose: 4 tab Documented by: Levothyroxine Sodium (Synthroid) 125 mcg PO DAILYBB [facility] Stop: 10/28/19 06:29 Last Admin: 10/02/19 05:19 Dose: 125 mcg Documented by: Loperamide HCl (Imodium) 2 mg PO Q4H PRN PRN Reason: Diarrhea Stop: 11/01/19 10:43 Metoprolol Tartrate (Lopressor) 100 mg PO BID [facility] Stop: 10/27/19 20:59 Last Admin: 10/02/19 09:18 Dose: 100 mg Documented by: Miscellaneous (Order Awaiting Action) 1 ea N/A QS [facility] Stop: 10/28/19 00:00 Last Admin: 10/02/19 07:19 Dose: Not Given Documented by: Ondansetron HCl (Zofran Odt) 4 mg PO Q8H PRN PRN Reason: Nausea And Vomiting Stop: 10/27/19 19:22 Polyethylene Glycol (Miralax Powder Packet) 17 gm PO DAILY [facility] Stop: 10/29/19 13:14 Last Admin: 10/02/19 09:18 Dose: 17 gm Documented by: Vitamin D (Vitamin D3) 1,000 units PO DAILY [facility] Stop: 10/28/19 08:59 Last Admin: 10/02/19 09:17 Dose: 1,000 units Documented by:
--- NOTE | 2019-10-02 15:09 | Nephrology Progress Note ---
Date of Service October 02, 2019 Assessment & Plan (1) Nephrotic syndrome: suspect form MN or MPGN -for conservative mgt -f/u pending anti PLA2 R test Present on Admission?: Yes (2) CKD (chronic kidney disease) stage 5, GFR less than 15 ml/min: baseline creatinine prior to admission about 3; near that baseline now. reaffirtmed she is for conservative mgt > no bx, dialysis, ctx. -cont current bumex dose, lowered just today -given her light headed ness/vasovagal sx today > consider lower beta crispin dose -daily bmp -has appt w/ me in [place] [facility] 10[facility]11 and [place] keep that for hospital f/u Present on Admission?: Yes Admission and Anticipated Discharge Date Admission Date: September 27, 2019 Subjective seen on rounds at approx 1400; having a "rough time today:" had lightheadedness mild dyspnea whiel up to bathroom (note but not on way to bathroom). no n/v, no FLETCHER, no worse sob, edema cont to improve. son at bedside Review of Systems Review of Systems: All systems reviewed & are unremarkable except as noted in HPI & below Physical Exam Constitutional: well developed and well nourished; no acute distress Eyes: EOM intact bilaterally ENMT: Ears: no external ear abnormality Nose: no external nose abnormality Mouth: + dry oral mucous membranes Neck: no nuchal rigidity Respiratory: normal respiratory effort Auscultation: + diminished lung sounds (sidney R base) and + crackles (fine L>R basilar crackles) Cardiovascular: Rate/Rhythm: + irregularly irregular Extremities: + edema (trace-one plus) Gastrointestinal (Abdomen): Inspection/Auscultation: normal bowel sounds Percussion/Palpation: abdomen soft; abdomen nontender Musculoskeletal: Extremities: strength 5/5 throughout Skin: no rashes, warm and dry Neurologic: smyth, fluent speech, no tremor Psychiatric: A+Ox3, euthymic affect Genitourinary: no taylor Results & Data ([facility]) Vital Signs (Past 12 Hours) Vital Signs Temp Pulse Pulse Resp BP BP Pulse Ox 10/02/19 11:40 36.4 C L 78 20 106/62 98 10/02/19 09:53 82 10/02/19 09:15 95 H 126/76 95 10/02/19 07:38 77 10/02/19 07:14 36.7 C 81 16 105/61 96 10/02/19 04:05 36.5 C 90 16 109/68 98 Laboratory Results 09/27/19 12:15 10/02/19 08:29
[2019-10-02] MEDS: HYDROCORTISONE 2.5% CR 30 GM TUBE EXT SCH (20:15)
[2019-10-03] MEDS: LEVOTHYROXINE SODIUM 125 MCG TABLET PO SCH (05:41)
[2019-10-03] MEDS: METOPROLOL TARTRATE 100 MG TAB PO SCH (08:37)
[2019-10-03] MEDS: BUMETANIDE 1 MG TAB PO SCH (08:38)
[2019-10-03] MEDS: BuPROPion SR 150 MG TABCR PO SCH (08:38)
[2019-10-03] MEDS: CHOLECALCIFEROL 1,000 UNITS 25 MCG TAB PO SCH (08:38)
[2019-10-03] MEDS: LACTOBACILLUS ACIDOPHILUS (FLORANEX) TAB PO SCH ×2 (08:39→12:21)
[2019-10-03] MEDS: APIXABAN 2.5 MG TAB PO SCH (08:39)
[2019-10-03] MEDS: POLYETHYLENE (MIRALAX) 17 GM PACK PO SCH (08:47)
--- NOTE | 2019-10-03 11:22 | XRay Report ---
XR chest 2V PA/lateral CLINICAL HISTORY: chf dyspnea COMPARISON STUDY: 10/07/2019 FINDINGS: Mild stable cardiomegaly. Large fixed hiatal hernia. Small right pleural effusion. Lungs otherwise appear clear. IMPRESSION: 1. Large fixed hiatal hernia. 2. Small right pleural effusion. 3. Improved components of congestive failure compared to the prior exam. ACT 112: Negative or not required by law. The above report was generated using voice recognition software. It may contain grammatical, syntax or spelling errors. Electronically signed by: Davi Patterson M.D. 10/03/2019 11:20 AM
--- NOTE | 2019-10-03 12:43 | Nephrology Progress Note ---
Date of Service October 03, 2019 Assessment & Plan (1) Nephrotic syndrome: suspect form MN or MPGN -for conservative mgt: Patient has had extensive discussion with my partners and her family about dialysis, renal biopsy, aggressive immunosuppressive therapies and declines all of these -f/u pending anti PLA2 R test (2) CKD (chronic kidney disease) stage 5, GFR less than 15 ml/min: baseline creatinine prior to admission about 3; near that baseline now. reaffirtmed she is for conservative mgt > no bx, dialysis, ctx. DISCHARGE RECOMMENDATIONS: -keep 10-12-[address] Jacey Zimmerman at 12:10 PM as already scheduled; patient may need family assistance with video visit -discharge on 2 mg bumetanide po MWF and one extra 2 mg dose at least 4 hours after first dose for lower extremity edema up to 3 days in a row -discharge on potassium 10 mEq p.o. on MWF -[facility] to draw BMP, phos, PTH, 25 OHD, hemoglobin, transferrin sa turation, ferritin on October [address] Longo Admission and Anticipated Discharge Date Admission Date: September 27, 2019 Subjective no further spells of lightheadedness like yesterday. Moving her bowels. Denies voiding concerns or worsened dyspnea. feels her edema is improving Review of Systems Review of Systems: All systems reviewed & are unremarkable except as noted in HPI & below Physical Exam Constitutional: well developed and well nourished; no acute distress On room air, maneuvers independently and easily for exam Eyes: EOM intact bilaterally ENMT: Ears: no external ear abnormality Nose: no external nose abnormality Mouth: + dry oral mucous membranes Neck: no nuchal rigidity Respiratory: normal respiratory effort Auscultation: + diminished lung sounds and + crackles (fine basilar crackles, fewer than yesterday) Cardiovascular: Rate/Rhythm: + irregularly irregular Extremities: + edema (trace) Gastrointestinal (Abdomen): Inspection/Auscultation: normal bowel sounds Percussion/Palpation: abdomen soft; abdomen nontender Musculoskeletal: Extremities: strength 5/5 throughout Skin: no rashes, warm and dry Neurologic: moves all extremities, fluent speech, no tremor Psychiatric: A+Ox3, euthymic affect worries about her short-term memory, though no such issues apparent on brief evaluation Results & Data ([facility]) Vital Signs (Past 12 Hours) Vital Signs Temp Pulse Resp BP Pulse Ox 10/03/19 09:28 36.9 C 84 18 128/65 96 10/03/19 07:29 37.0 C 87 20 113/64 94 10/03/19 04:31 36.7 C 77 20 123/66 95 Laboratory Results 09/27/19 12:15 10/02/19 08:29
--- NOTE | 2019-10-03 12:49 | Hospitalist Progress Note ---
Date of Service October 03, 2019 Assessment & Plan (1) Acute kidney injury: Likely secondary to GI loss and has not been able to eat and drink much Serum creatinine 3.47 compared to 1.18 on 01/16/19. UA shows 4+ protein. No hydronephrosis on CT. Hold bumetanide. Check SPEP, UPEP and other serological studies have been sent out-results and pending as of 10/02/2019 Will give cautious amount of intravenous fluid and was advised to drink more fluid Creatinine remains at 3.12 without any change from prior Appreciate nephrology input and recommendation IV fluid has been discontinued Advised to drink about 1500 mL of fluid daily Has been getting oral bumetanide 4 mg twice daily and the creatinine remains stable Discussed with tank truck loader and the patient can go home on bumetanide Has had dizziness with presyncopal episode this morning likely secondary to dehydration We will get orthostatic vitals and advised to take extreme precaution to avoid fall Bumetanide doses have been decreased to 2 mg twice daily as at home Will be discharged to [facility] this afternoon (2) Chronic diastolic heart failure: History of chronic left ventricular diastolic heart failure. No overt CHF radiographically. Hold bumetanide due to worsening renal function. Will try cautious amount of intravenous fluid IV fluid as No signs and/or symptoms of fluid overload Continue bumetanide 4 mg twice daily We will continue with current dose of bumetanide and potassium supplement Will continue bumetanide as an outpatient Chest x-ray did not show any CHF She will be discharged on bumetanide 2 mg twice daily (3) Atrial fibrillation: Rate controlled on metoprolol. Continue anticoagulation with apixaban. Denies any cardiac symptoms Heart rate is controlled (4) Hypertension: Continue metoprolol. Follow and titrate Rx. (5) Cerebrovascular disease: S/P ischemic stroke, apparently cardioembolic due to AF. Minimal residual deficit. Continue apixaban. (6) C. 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 Currently on vancomycin taper, but still having frequent loose stools. Consult GI-appreciate GI input and recommendation Awaiting stool studies and continue Vanco for now Stool for C. difficile is negative Stool culture has been negative Stop vancomycin and will give stool softener as advised by GI Still having diarrhea-we will try Imodium as needed No more diarrhea (7) Cirrhosis of liver: Mild cirrhosis of liver noted on CT. No apparent prior history. Current weight 74 kg, but pt reports 34 kg weight loss after her . May have CAM. Consult GI-we will have follow-up appointment as an outpatient. (8) Hypothyroidism: TSH = 4.690. Continue levothyroxine. (9) Anemia: Hgb 9.7. 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 Check Fe studies, B12, folate, SPEP, UPEP. Further management per Nephrology. (10) Adnexal mass: Incidental finding on CT: "Indeterminate 2.5 x 1.9 cm cystic structure of the left adnexal/left iliac distribution." Check old records-None noted Follow as clinically indicated. (11) Frequent falls: Pt reports frequent falls, last episode about 1 month ago. 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 Also s/p stroke with minimal residual right-sided weakness. PT / OT evals.-May need placement (12) DVT prophylaxis: Continue apixaban. Ambulate. (13) Do not resuscitate status: Per discussion with patient and her son. (14) Discharge planning issues: Anticipated return to [facility]. Nephrology follow-up with Dr. Zimmerman. The family member wants her to go to [facility] Referrals have been made Admission and Anticipated Discharge Date Admission Date: September 27, 2019 Subjective The patient was seen and examined in medical floor She remains weak and lethargic Complains today of ongoing diarrhea without any abdominal pain, nausea and or vomiting or distention Complains today of bilateral leg swelling which is chronic 09/29/2019 The patient was seen and examined in presence of the son She has been feeling a lot better and the diarrhea seems to be under control Denies any shortness of breath and/or palpitation, no nausea and/or vomiting 09/30/2019 The patient was seen and examined in medical floor She remains stable and except generalized weakness she denies any other symptoms Her legs remain swollen but denies any other fluid overload symptoms 10/01/2019 Patient was seen and examined in medical floor She complains today of weakness and tiredness but denies any other acute symptoms She has been making out urine okay 10/02/2019 The patient was seen and examined in medical floor in presence of the daughter and the son She complains to have generally weak and has had presyncopal episode while ambulating Denies any acute other symptoms 10/03/2019 The patient also seen and examined in medical floor She was noted to have one episode of dizziness while in bathroom She has been feeling fine since then He has been negative for any orthostatic changes Denies any other symptoms ready to be discharged to [facility] this afternoon Review of Systems Review of Systems: All systems reviewed and are unremarkable except as noted below Musculoskeletal: No acute arthritis involving any joints Neurologic: no dizziness Physical Exam Physical Exam: Lying in bed comfortably Constitutional: + thin; no acute distress and not ill appearing Eyes: PERRL, conjunctivae normal, anicteric sclerae ENMT: external ear and nose normal, oropharynx normal Neck: trachea midline, no thyromegaly Respiratory: normal respiratory effort; no respiratory distress Auscultation: lungs clear to auscultation bilaterally Cardiovascular: Rate/Rhythm: regular rate and regular rhythm Heart Sounds: no murmur Extremities: + edema (Bilateral leg edema chronic -has been improving with increasing dose of bumetanide) Gastrointestinal (Abdomen): Inspection/Auscultation: abdomen normal to inspection and normal bowel sounds; abdomen not distended Percussion/Palpation: abdomen soft; abdomen nontender Musculoskeletal: No arthritis involving any joints Neurologic: moves all extremities; no focal motor deficits Lymphatic: no cervical or axillary lymphadenopathy Results & Data Results & Data ([facility]) Vital Signs (Past 12 Hours) Vital Signs Temp Pulse Resp BP Pulse Ox 10/03/19 09:28 36.9 C 84 18 128/65 96 10/03/19 07:29 37.0 C 87 20 113/64 94 10/03/19 04:31 36.7 C 77 20 123/66 95 Medications Administered Current Inpatient Medications Apixaban (Eliquis) 2.5 mg PO BID [facility] Stop: 10/27/19 20:59 Last Admin: 10/03/19 08:39 Dose: 2.5 mg Documented by: Bumetanide (Bumex) 2 mg PO BID17 [facility] Stop: 11/01/19 16:59 Last Admin: 10/03/19 08:38 Dose: 2 mg Documented by: Bupropion HCl (Wellbutrin-Sr) 150 mg PO DAILY [facility] Stop: 10/28/19 08:59 Last Admin: 10/03/19 08:38 Dose: 150 mg Documented by: Calcium Carbonate (Tums) 500 mg PO . NEEDED PRN PRN Reason: Heartburn Stop: 10/27/19 19:00 Last Admin: 09/29/19 01:12 Dose: 500 mg Documented by: Hydrocortisone (Hydrocortisone 2.5%) 1 appln EXT HS [facility] Stop: 10/27/19 20:59 Last Admin: 10/02/19 20:15 Dose: 1 appln Documented by: Lactobacillus Acidophilus (Floranex) 4 tab PO TIDM [facility] Stop: 10/27/19 19:00 Last Admin: 10/03/19 12:21 Dose: 4 tab Documented by: Levothyroxine Sodium (Synthroid) 125 mcg PO DAILYBB [facility] Stop: 10/28/19 06:29 Last Admin: 10/03/19 05:41 Dose: 125 mcg Documented by: Loperamide HCl (Imodium) 2 mg PO Q4H PRN PRN Reason: Diarrhea Stop: 11/01/19 10:43 Metoprolol Tartrate (Lopressor) 100 mg PO BID [facility] Stop: 10/27/19 20:59 Last Admin: 10/03/19 08:37 Dose: 100 mg Documented by: Miscellaneous (Order Awaiting Action) 1 ea N/A QS [facility] Stop: 10/28/19 00:00 Last Admin: 10/03/19 08:40 Dose: Not Given Documented by: Ondansetron HCl (Zofran Odt) 4 mg PO Q8H PRN PRN Reason: Nausea And Vomiting Stop: 10/27/19 19:22 Polyethylene Glycol (Miralax Powder Packet) 17 gm PO DAILY [facility] Stop: 10/29/19 13:14 Last Admin: 10/03/19 08:47 Dose: 17 gm Documented by: Vitamin D (Vitamin D3) 1,000 units PO DAILY [facility] Stop: 10/28/19 08:59 Last Admin: 10/03/19 08:38 Dose: 1,000 units Documented by:
--- NOTE | 2019-10-04 09:45 | Discharge Summary ---
Date of Service October 04, 2019 Admission HPI Per Admitting Provider 79 YO female, just moved from [place], [place] to [facility] in [place] last week. Family lives in town. History of diastolic CHF, AF, mitral regurgitation, cerebrovascular disease, CKD, recurrent C diff, and other problems as noted. She is in the process of establishing with Dr. Zimmerman for management of her renal disease. Noted to have rising creatinine on labs drawn yesterday (BUN 37, creatinine 3.57). Serum creatinine was 1.18 on 01/16/19. Referred to hospital for further evaluation and management. Per history obtained from patient and son, sounds like she has had significant proteinuria. Urine output good with bumetanide. Has chronic / worsening dependent edema. No dysuria or gross hematuria. Also having problems with recurrent C difficile; has had 3 episodes. Started on vancomycin taper about 1 week ago, but having persistent diarrhea. No fever, abdominal pain, hematochezia. Admission Exam Per Admitting Provider Constitutional: WD/WN, vitals as above no acute distress Eyes: PERRL, conjunctivae normal, anicteric sclerae ENMT: external ear and nose normal, oropharynx normal Ears: + hearing impairment (left ear) Neck: trachea midline, no thyromegaly Respiratory: normal respiratory effort, lungs clear to auscultation Cardiovascular: Rate/Rhythm: + irregularly irregular Heart Sounds: + murmur (II/ sys murmur LSB); no gallop and no cardiac rub Vessels: + JVD; + abnormal peripheral pulses (pedal pulses diminished) Extremities: normal capillary refill and + edema (2+); no calf tenderness Gastrointestinal (Abdomen): normal bowel sounds, soft, nontender, no hepatosplenomegaly Musculoskeletal: Head/Neck/Chest: neck supple Extremities: strength 5/5 throughout; no cyanosis and no clubbing Skin: no rashes, warm and dry Neurologic: PERRL, EOMI no facial palsy no dysarthria or aphasia patellar DTR's 1/2 bilat plantar reflexes downgoing Psychiatric: Orientation: alert and oriented x 3 (oriented to person, hospital, month, year, president) Affect: euthymic affect Lymphatic: no cervical lymphadenopathy Principal Diagnosis Nephrotic syndrome (EZEQUIEL), chronic diastolic heart failure, atrial fibrillation, cerebrovascular disease, cirrhosis of liver Discharge Exam Constitutional + thin; no acute distress and not ill appearing Eyes PERRL, conjunctivae normal, anicteric sclerae ENMT external ear and nose normal, oropharynx normal Neck trachea midline, no thyromegaly Respiratory normal respiratory effort; no respiratory distress Auscultation: lungs clear to auscultation bilaterally Cardiovascular Rate/Rhythm: regular rate and regular rhythm Heart Sounds: no murmur Extremities: + edema (Bilateral leg edema chronic -has been improving with increasing dose of bumetanide) Gastrointestinal (Abdomen) Inspection/Auscultation: abdomen normal to inspection and normal bowel sounds; abdomen not distended Percussion/Palpation: abdomen soft; abdomen nontender Neurologic moves all extremities; no focal motor deficits Lymphatic no cervical or axillary lymphadenopathy Discharge Data Allergies Allergy/AdvReac Type Severity Reaction Status Date / Time No Known Allergies Allergy Unverified 09/27/19 12:23 Consultations 09/27/19 15:19 ED Decision to Admit Stat 09/28/19 07:00 Consult Nephrology Routine 09/28/19 08:00 Consult Gastroenterology Routine Ordered Studies 09/27/19 12:42 CT abd pelvis wo con Stat CT head/brain wo con Stat Hospital Course (1) Acute kidney injury: Likely secondary to GI loss and has not been able to eat and drink much Serum creatinine 3.47 compared to 1.18 on 01/16/19. UA shows 4+ protein. No hydronephrosis on CT. Hold bumetanide. Check SPEP, UPEP and other serological studies have been sent out-results and pending as of 10/02/2019 Will give cautious amount of intravenous fluid and was advised to drink more fluid Creatinine remains at 3.12 without any change from prior Appreciate nephrology input and recommendation IV fluid has been discontinued Advised to drink about 1500 mL of fluid daily Has been getting oral bumetanide 4 mg twice daily and the creatinine remains stable Discussed with advertising copywriter and the patient can go home on bumetanide Has had dizziness with presyncopal episode this morning likely secondary to dehydration We will get orthostatic vitals and advised to take extreme precaution to avoid fall Bumetanide doses have been decreased to 2 mg twice daily as at home Will be discharged to [facility] this afternoon (2) Chronic diastolic heart failure: History of chronic left ventricular diastolic heart failure. No overt CHF radiographically. Hold bumetanide due to worsening renal function. Will try cautious amount of intravenous fluid IV fluid as No signs and/or symptoms of fluid overload Continue bumetanide 4 mg twice daily We will continue with current dose of bumetanide and potassium supplement Will continue bumetanide as an outpatient Chest x-ray did not show any CHF She will be discharged on bumetanide 2 mg twice daily (3) Atrial fibrillation: Rate controlled on metoprolol. Continue anticoagulation with apixaban. Denies any cardiac symptoms Heart rate is controlled (4) Hypertension: Continue metoprolol. Follow and titrate Rx. (5) Cerebrovascular disease: S/P ischemic stroke, apparently cardioembolic due to AF. Minimal residual deficit. Continue apixaban. (6) C. 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 Currently on vancomycin taper, but still having frequent loose stools. Consult GI-appreciate GI input and recommendation Awaiting stool studies and continue Vanco for now Stool for C. difficile is negative Stool culture has been negative Stop vancomycin and will give stool softener as advised by GI Still having diarrhea-we will try Imodium as needed No more diarrhea (7) Cirrhosis of liver: Mild cirrhosis of liver noted on CT. No apparent prior history. Current weight 74 kg, but pt reports 34 kg weight loss after her . May have CAM. Consult GI-we will have follow-up appointment as an outpatient. (8) Hypothyroidism: TSH = 4.690. Continue levothyroxine. (9) Anemia: Hgb 9.7. 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 Check Fe studies, B12, folate, SPEP, UPEP. Further management per Nephrology. (10) Adnexal mass: Incidental finding on CT: "Indeterminate 2.5 x 1.9 cm cystic structure of the left adnexal/left iliac distribution." Check old records-None noted Follow as clinically indicated. (11) Frequent falls: Pt reports frequent falls, last episode about 1 month ago. 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 Also s/p stroke with minimal residual right-sided weakness. PT / OT evals.-May need placement (12) DVT prophylaxis: Continue apixaban. Ambulate. (13) Do not resuscitate status: Per discussion with patient and her son. (14) Discharge planning issues: Anticipated return to [facility]. Nephrology follow-up with Dr. Zimmerman. The family member wants her to go to [facility] Referrals have been made Total Time Total Time Spent Total Time Spent (In Minutes): Nephrotic syndrome (EZEQUIEL), chronic diastolic heart failure, atrial fibrillation, cerebrovascular disease, cirrhosis of liver Total Time Includes: Examination of the Patient, Discharge Planning, Medication Reconciliation and Communication With Other Providers Discharge Plan Discharge Items Patient Disposition: Transfer Inpatient Rehab Fac Reason For Visit: WORSENING RENAL FAILURE, DIARRHEA Discharge Diagnosis: Nephrotic syndrome (EZEQUIEL), chronic diastolic heart failure, atrial fibrillation, cerebrovascular disease, cirrhosis of liver Condition on Discharge: Fair Activity Comment: Continue PT and OT Non-emergency contact: Primary Care Provider Call non-emergency contact if: you have any medication questions and your symptoms worsen Follow-up/Referrals: [facility] [place] [Primary Care Provider] - (-keep 10-12-[address] Jacey Zimmerman at 12:10 PM as already scheduled; patient may need family assistance with video visit) Diet: Heart Healthy and Low Potassium (2gm) Fluids: 1200ml (5 cups) Addtl Attending Provider Instructions: Please take precaution to avoid falls Take your medications as prescribed Addtl Fleet Mechanic Provider Instructions: -keep 10-12-[address] Jacey Zimmerman at 12:10 PM as already scheduled; patient may need family assistance with video visit -discharge on 2 mg bumetanide po MWF and one extra 2 mg dose at least 4 hours a fter first dose for lower extremity edema up to 3 days in a row -discharge on potassium 10 mEq p.o. on MWF -[facility] to draw BMP, phos, PTH, 25 OHD, hemoglobin, transferrin saturation, ferritin on October 08 Pending Studies at Discharge: Yes Studies:: -anti Phospholipase receptor Antibodies Stand-Alone Forms: My [facility] Skilled Items Patient informed of condition?: Yes DNR: Yes Discharge Level of Care: Acute rehab Communicable Disease: No Discharge Prognosis: Stable Lines: None Urinary Catheter: No Medications and DC Order Prescriptions: New polyethylene glycol 3350 [Miralax] 17 gram Powder In Packet 17 g PO DAILY Qty: 30 RF: 0 Continued magnesium oxide 400 mg (241.3 mg magnesium) tablet 400 mg PO BID RF: 0 colesevelam 625 mg tablet 1,250 mg PO BID RF: 0 levothyroxine 125 mcg tablet 125 mcg PO DAILY RF: 0 Eliquis 2.5 mg tablet 2.5 mg PO BID RF: 0 Align 4 mg Capsule 4 mg PO BID RF: 0 Benefiber Sugar Free (dextrin) See Rx Instructions .ROUTE .COMPLEX RF: 0 bupropion HCl 150 mg tablet sustained-release 12 hr 150 mg PO DAILY RF: 0 hydrocortisone 2.5 % Cream 1 applic TOPICAL HS RF: 0 metoprolol tartrate 100 mg Tablet 100 mg PO BID RF: 0 cholecalciferol (vitamin D3) 25 mcg (1,000 unit) Tablet 25 mcg PO DAILY RF: 0 Vitron-C 65 mg iron- 125 mg Tablet,Delayed Release (Dr/Ec) 1 tab PO DAILY RF: 0 calcium carbonate [Calcium Antacid] 200 mg calcium (500 mg) Tablet,Chewable 200 mg PO .PRN PRN (Reason: Heartburn) RF: 0 ondansetron 4 mg Tablet,Disintegrating 4 mg PO Q8H PRN (Reason: Nausea And Vomiting) RF: 0 Changed bumetanide 2 mg tablet 2 mg PO UD Qty: 0 RF: 0 potassium chloride 10 mEq Tablet Extended Release 10 meq PO UD Qty: 0 RF: 0 Discontinued vancomycin 250 mg capsule 250 mg PO DIRECTED RF: 0 Discharge Orders: Discharge Order (Routine); Ordered 10/03/19 Ordered By: Cj Longo Admission Data Admit Date/Time: 09/27/19 16:35 Attending Provider: Cj Longo Admit Provider: Josr Mcconnell Primary Care Provider: [facility] [place] Other Providers: Josr Mcconnell ; Devon Dawn ; Oly Grubbs ; [facility] Other Interventions: Discharge Summary Assessment (RN) Last Done: 10/03/19 14:02 DC Date/Time DO NOT enter until pt leaves facility: 10/03/19 14:25
[2019-10-05 12:14] LABS: ANCA Screen Negative (Negative); Complement C3 115 mg/dL; Complement Total(CH50) >60 U/mL (31-60); Myeloperoxidase Ab <1.0 AI (<1.0); Proteinase-3 AB <1.0 AI (<1.0)
== END 2019-10-03 14:25 | DRG 683 ==
LOC: ED 11:31 → 2N 16:35 → INTOOBSV 16:35 → SUATTDRO 16:35 → 2N 17:55